=== PATIENT | female | born 1965 | race Caucasian/White ===

== ENCOUNTER → 2016-03-05 | Outpatient (CLI) | payer BC ==
--- NOTE | 2016-03-05 09:13 | BD ---
EXAMINATION TYPE: MG DEXA axial skeleton. DATE OF EXAM: 03/05/2016 8:51 AM CLINICAL HISTORY: Asymptomatic menopausal state, Z78.0 Height: 65in Weight: 120 FRAX RISK QUESTIONS: Alcohol (3 or more units per day): no Family History (Parent hip fracture): no Glucocorticoids (More than 3mos): no (Ex: prednisone, prednisolone, methylprednisolone, dexamethasone, and hydrocortisone). History of Fracture in Adulthood: yes Secondary Osteoporosis: 1. Type 1 Diabetes: no 2. Hyperthyroidism: no 3. Menopause before 45: yes, age 27, hysterectomy 4. Malnutrition: no 5. Chronic liver disease: no Rheumatoid Arthritis: no Current Tobacco Use: yes RISK FACTORS HISTORY OF: History of Fractures: yes When: lower leg 8-9 years ago; hand 7-8 years Other Fractures since Age 50: no Family History of Osteoporosis: yes, grandmother & aunt Drink Alcohol: occasionally, socially Active: yes Diet low in dairy products/other sources of calcium: no Take estrogen and/or progesterone medications: not now How long: about 5 years hormonal contraceptives Lost more than 2 inches in height since high school: no Frequent falls: no Poor Health: no Hyperparathyroidism: no Adrenal Insufficiency: no MEDICATIONS: Prednisone or other steroids: no Thyroid Medications: no Osteoporosis Medications: no EXAM MEASUREMENTS: Bone mineral densitometry was performed using the Snaptrip System. Bone mineral density as measured about the Lumbar spine is: ----- L1-L4(G/cm2): 1.022 T Score Values are as follows: ----- L2: -2.0 ----- L3: -1.0 ----- L4: -1.5 ----- L1-L4: -1.3 Bone mineral density not previously done at this facility Bone mineral density about the R hip (g/cm2): 0.764 Bone mineral density about the L hip (g/cm2): 0.753 T Score values are as follows: -----R Neck: -2.0 -----L Neck: -2.1 -----R Intertrochanter: -1.4 -----L Intertrochanter: -1.5 Bone mineral density not previously done at this facility IMPRESSION: Osteopenia (T Score between -2.5 and -1 as noted by T score values lumbar spine & Bilateral Hips There is slightly increased risk of fracture and the patient may be considered for treatment. Re-Screen 1-2 years. NOTE: T-SCORE=SD OF THE YOUNG ADULT MEAN.
--- NOTE | 2016-03-12 14:28 | MM ---
Reason for exam: screening (asymptomatic). Last mammogram was performed 5 years and 7 months ago. History: Patient is postmenopausal. Family history of premenopausal breast cancer in maternal aunt at age 30 and premenopausal breast cancer in maternal cousin at age 20. Took hormonal contraceptives for 5 years. Physical Findings: A clinical breast exam by your physician is recommended on an annual basis and results should be correlated with mammographic findings. MG 3D Screening Mammo W/Cad Bilateral CC and MLO view(s) were taken. Prior study comparison: August 16, 2013, mammogram, performed at [facility]. March 29, 2012, mammogram, performed at [facility]. August 09, 2010, CAD bilateral diagnostic mammogram. April 26, 2010, right diagnostic mammogram w/CAD. The breast tissue is extremely dense which could obscure a lesion on mammography. There is chronic nodularity in the right breast. There is no discrete abnormality. ASSESSMENT: Negative, BI-RAD 1 RECOMMENDATION: Routine screening mammogram of both breasts in 1 year.
== END | disposition home or self-care (01) ==
LOC: RADMAMWWP 08:10
PROVIDERS: ATTEND Family Medicine
DX: Z12.31 Encounter for screening mammogram for malignant neoplasm of breast (principal); M85.80 Other specified disorders of bone density and structure, unspecified site; Z78.0 Asymptomatic menopausal state
CPT/HCPCS: 77080; 77063; G0202

== ENCOUNTER → 2016-04-03 | Outpatient (CLI) | payer BC ==
--- NOTE | 2016-04-03 18:51 | CONS ---
DATE: 04/03/2016 CONSULTATION/NEW PATIENT EVALUATION HISTORY OF PRESENT ILLNESS/SLEEP-WAKE EVALUATION: A 50-year-old lady who has been evaluated in the sleep center for significant excessive daytime sleepiness, tiredness and awakenings from sleep with snoring. SLEEP SCHEDULE: Patient's usual sleep schedule from around 10:00 p.m. until 6:00 a.m. on working days and from 10:00 p.m. to 8:00 a.m. on weekends. FALLING ASLEEP: Sometimes she has problem with falling asleep. No TV in bedroom. DURING SLEEP: She usually sleeps on the back position. According to her , she snores. He never report that she has episodes of stopped breathing during the sleep. She is grinding her teeth, wakes up from sleep 2 times without nocturia. DURING THE DAY/WAKE STATE: In the morning, patient wakes up tired, feels sleepy during the day. [place] Sleepiness Scale significantly increased to 16. She may take naps on the weekend. She usually does not feel refreshed after nap. Her weight is about the same for the last years. No history of hypnagogic hallucinations, sleep paralysis or cataplexy. PAST MEDICAL HISTORY: Positive for ADHD, acid reflux, seasonal allergies. PAST SURGICAL HISTORY: Partial hysterectomy for adenomyosis, oophorectomy for a cyst at the end of 2014 and after that time basically patient started to feel more tired and sleepy during the day and her urinary bladder lift surgery at the same time as oophorectomy. MEDICATIONS: 1. Paxil. 2. Ranitidine. SOCIAL HISTORY: Positive for smoking less than 1 pack of cigarettes a day for about 30 years. Presently, patient trying to quit smoking, now using up to 1 cigarette a day. Alcohol consumption rarely. ALLERGIES TO MEDICATIONS: TETRACYCLINE. REVIEW OF SYSTEMS: Tiredness and sleepiness during the day. FAMILY HISTORY: Hyperlipidemia, cancer. PHYSICAL EXAMINATION: GENERAL: A lady without distress. VITAL SIGNS: BP 100/64, HR 83, RR 18. Height 65 inches. Weight 122.8. Body mass index 20.3. Neck 12-1/2 inches in circumference. Temp is 97.0. HEENT: PERRLA, EOMI. Evaluation of oropharynx showed tongue protrudes midline, retrognathia about 4 mm, short distance between soft palate and posterior pharyngeal wall. Moderately low position of soft palate, wide pillars. NECK: Supple. No JVD. Thyroid is not palpable. LUNGS: Clear to percussion and to auscultation. Good air exchange. No wheezing or rhonchi. HEART: S1, S2 regular. No murmurs, gallops or rubs. ABDOMEN: Soft and nontender. Bowel sounds are present. No organomegaly appreciated. EXTREMITIES: No clubbing or cyanosis. SOUVENIR AND NOVELTY MAKER: Awake, alert, and oriented x3. Cranial nerves 2 to 7 intact. There is no fasciculation or atrophy noted. No focal deficits observed. IMPRESSION: 1. Snoring, awakenings from sleep 2 times at night, small oropharyngeal air space, sleepiness. Sleepiness started more for last year after oophorectomy, retrognathia 4 mm. Possible obstructive sleep apnea-hypopnea syndrome. 2. Sleepiness. [place] Sleepiness Scale significantly increased to 16. Differential diagnoses include hypersomnia. 3. History of attention deficit hyperactivity disorder. 4. Acid reflux. 5. Status post partial hysterectomy. 6. Status post oophorectomy bilaterally for cyst 1 year ago. 7. Status post bladder lift procedure. 8. Seasonal allergies. PLAN: 1. Polysomnography for evaluation of patient's breathing during sleep. 2. CPAP/BiPAP titration if sleep study confirms obstructive sleep apnea-hypopnea syndrome. 3. Multiple sleep latency test if sleep study is negative for obstructive sleep apnea/hypopnea syndrome. 4. Preferable position during sleep on the side. 5. No driving if patient feels any sleepiness. Patient is aware of civil and criminal liability for unsafe driving. 6. I will see patient for follow-up visit to explain results of the testing and following plan. Thank you very much for this consultation. Sincerely, Oscar Jackson MD, PhD, FAASM. Diplomat of [place] [employer], Sleep Medicine Board by [place] [employer] [place] [employer] Tax Agent of [facility] [place]
== END | disposition home or self-care (01) ==
LOC: SLEEP 13:56
PROVIDERS: ATTEND Internal Medicine
DX: G47.33 Obstructive sleep apnea (adult) (pediatric) (principal); G47.10 Hypersomnia, unspecified; F90.9 Attention-deficit hyperactivity disorder, unspecified type; F17.200 Nicotine dependence, unspecified, uncomplicated; Z88.1 Allergy status to other antibiotic agents; Z91.09 Other allergy status, other than to drugs and biological substances; Z79.899 Other long term (current) drug therapy; Z98.890 Other specified postprocedural states
CPT/HCPCS: 99211

== ENCOUNTER 2016-07-30 10:08 | Emergency (ER) | payer BC ==
[2016-07-30] MEDS ORDERED: SODIUM CHLORIDE 0.9% 500 ML IV STA (10:42)
[2016-07-30] MEDS ORDERED: METOCLOPRAMIDE 5 MG/ML 2 ML VIAL IVP STA (10:42)
[2016-07-30] MEDS ORDERED: HYDROmorphone 1 MG/ML 1 ML SYRINGE IVP STA (10:42)
--- NOTE | 2016-07-30 10:42 | ED ---
General Adult HPI - General Chief complaint: Abdominal Pain Stated complaint: side pain Time Seen by Provider: 07/30/16 10:22 Source: patient, RN notes reviewed, old records reviewed Mode of arrival: ambulatory Limitations: no limitations - History of Present Illness Initial comments: Chief complaint and history of present illness; this is a 51-year-old female here with her . The patient reports approximately half hour prior to emergency room patient developed acute sharp pain to the right upper quadrant near the gallbladder area. No nausea no vomiting. Pain increases with sitting up pain increased with palpation over the area. Denying nausea vomiting. She had a bowel movement which did not change the pain. - Related Data Home Medications Medication Instructions Recorded Confirmed PARoxetine HCL [Paxil Cr] 12.5 mg PO QAM 08/02/14 07/30/16 Ranitidine HCl 150 mg PO DAILY 08/02/14 07/30/16 Cholecalciferol [Vitamin D3] 2,000 unit PO DAILY 02/19/16 07/30/16 Janak/D3/Mag11/Zinc/Box Lining Machine Feeder/Travis/Bor 1 tab PO DAILY 07/30/16 07/30/16 [Caltrate 600+D Plus Tablet] Allergies Allergy/AdvReac Type Severity Reaction Status Date / Time Tetracyclines AdvReac Dizzy Verified 07/30/16 10:47 Review of Systems ROS Statement: Those systems with pertinent positive or pertinent negative responses have been documented in the HPI. Review of systems no visual acuity changes no complaint of headache no neck pain no chest pain or shortness of breath. She has point specific right upper quadrant pain over the gallbladder area. No radiation of pain to the back. She states she's having menopausal sweats. Denies any change in stool color or urine color. Denies past history of kidney stones she does have a history of colitis and affected more than left side of the colon. Patient's never had any gallbladder issues. All systems are reviewed. Past medical problems significant for GERD, colitis. Surgeries total hysterectomy. Hemorrhoidectomy. No other surgeries. Family history includes multiple cancers including colon, uterus, bone and breast. The patient is getting frequent colonoscopies. The patient has ALLERGIES to tetracycline. She does smoke strongly encouraged to stop drink alcohol socially. ROS Other: All systems not noted in ROS Statement are negative. Past Medical History Past Medical History: GERD/Reflux Additional Past Medical History / Comment(s): COLITIS. Hx left ovarian cyst, diverticula History of Any Multi-Drug Resistant Organisms: None Reported Past Surgical History: Hysterectomy Additional Past Surgical History / Comment(s): hemrrhoidectomy, bunion surgery Past Anesthesia/Blood Transfusion Reactions: Motion Sickness Additional Past Anesthesia/Blood Transfusion Reaction / Comment(s): mild Past Psychological History: ADD/ADHD Smoking Status: Current some day smoker Past Alcohol Use History: Rare Past Drug Use History: None Reported General Exam - General Exam Comments Initial Comments: General: The patient is awake and alert, complaining of right upper quadrant pain ongoing approximately 30-40 minutes ago. Pain increases with palpation coughing and sitting up. Denies nausea. Vital signs show temperature 97.5 pulse 72 respiratory rate 20 pulse ox 97% room air blood pressure 128/59 Eye: Pupils are equal, round and reactive to light, extra-ocular movements are intact ; there is normal conjunctiva bilaterally. No signs of icterus. Ears, nose, mouth and throat: There are moist mucous membranes and no oral lesions. Neck: The neck is supple, there is no tenderness . Cardiovascular: There is a regular rate and rhythm. No murmur, rub or gallop is appreciated. Respiratory: Lungs are clear to auscultation, respirations are non-labored, breath sounds are equal. No wheezes, stridor, rales, or rhonchi. Gastrointestinal: Pain with palpation to the right upper quadrant. Voluntary guarding with palpation on the right side with a positive Cesar sign. No rebound. No referred pain. Active bowel sounds. Patient denies any change in color of the stool. No change in color urine per patient. Back: There is no tenderness to palpation in the midline. There is no obvious deformity. Musculoskeletal: Full range of motion upper and lower extremities. Patient feels slightly better with her right leg bent at the knee laying flat. Neurological: No evidence of her complaints of any neuro deficits. No focal or lateralizing findings noted. Skin: Skin is warm and dry and no rashes or lesions are noted. Limitations: no limitations Course Vital Signs 07/30/16 10:14 Temperature 97.5 F L Pulse Rate 72 Respiratory 20 Rate Blood Pressure 128/59 O2 Sat by Pulse 97 Oximetry Medical Decision Making - Medical Decision Making Medical decision-making. The patient is here for acute sharp right upper quadrant pain. Labs show white count 7.3 hemoglobin 13 hematocrit of 38 with a potassium 4.8. BUN 15 creatinine 0.6 with a GFR greater than 60. Glucose 82. Amylase lipase within normal limits. X-ray of the abdomen shows abdominal gas pattern is normal. No evidence of obstruction or free air. No unusual calcifications are seen. Conclusion no acute intra-abdominal abnormality. As read by Dr. Willard On x-ray does appear to be large amount of gas in the right upper quadrant. On reexamination the patient had no pain. It appears the patient may have had dilatation of the intestine in that area causing a sharp pain has since subsided. The patient was advised to continue a stool softener at home. Increase fluid intake. Consider prune juice etc. for natural relief for other medications that are affected. Advised follow-up with family physician return emergency room as needed. - Lab Data Result diagrams: 07/30/16 11:02 07/30/16 11:02 Lab Results 07/30/16 07/30/16 07/30/16 Range/Units 10:51 11:02 11:02 WBC 7.3 (3.8-10.6) k/uL RBC 4.25 (3.80-5.40) m/uL Hgb 13.3 (11.4-16.0) gm/dL Hct 38.4 (34.0-46.0) % MCV 90.3 (80.0-100.0) fL MCH 31.4 (25.0-35.0) pg MCHC 34.8 (31.0-37.0) g/dL RDW 12.5 (11.5-15.5) % Plt Count 241 (150-450) k/uL Neutrophils % 58 % Lymphocytes % 31 % Monocytes % 6 % Eosinophils % 2 % Basophils % 0 % Neutrophils # 4.3 (1.3-7.7) k/uL Lymphocytes # 2.2 (1.0-4.8) k/uL Monocytes # 0.4 (0-1.0) k/uL Eosinophils # 0.1 (0-0.7) k/uL Basophils # 0.0 (0-0.2) k/uL Sodium 141 (137-145) mmol/L Potassium 4.8 (3.5-5.1) mmol/L Chloride 103 (98-107) mmol/L Carbon Dioxide 28 (22-30) mmol/L Anion Gap 10 mmol/L BUN 15 (7-17) mg/dL Creatinine 0.63 (0.52-1.04) mg/dL Est GFR (MDRD) Af Amer >60 (>60 ml/min/1.73 sqM) Est GFR (MDRD) Non-Af >60 (>60 ml/min/1.73 sqM) Glucose 82 (74-99) mg/dL Calcium 10.2 (8.4-10.2) mg/dL Total Bilirubin 0.5 (0.2-1.3) mg/dL AST 22 (14-36) U/L ALT 25 (9-52) U/L Alkaline Phosphatase 85 (38-126) U/L Total Protein 7.6 (6.3-8.2) g/dL Albumin 4.6 (3.5-5.0) g/dL Amylase 78 (30-110) U/L Lipase 94 (23-300) U/L Urine Color Light Yellow Urine Appearance Clear (Clear) Urine pH 5.5 (5.0-8.0) Ur Specific [place] 1.009 (1.001-1.035) Urine Protein Negative (Negative) Urine Glucose (UA) Negative (Negative) Urine Ketones Negative (Negative) Urine Blood Small H (Negative) Urine Nitrite Negative (Negative) Urine Bilirubin Negative (Negative) Urine Urobilinogen <2.0 (<2.0) mg/dL Ur Leukocyte Esterase Negative (Negative) Urine RBC 1 (0-5) /hpf Ur Squamous Epith Cells 1 (0-4) /hpf Urine Bacteria Rare H (None) /hpf Urine Mucus Rare H (None) /hpf Disposition Clinical Impression: Abdominal cramping in right upper quadrant Disposition: HOME SELF-CARE Condition: Good Instructions: Abdominal Pain (ED), Constipation (ED), High Fiber Diet (ED), Fleet Enema (ED) Additional Instructions: Increase fluids. Use natural laxatives. Follow-up family physician return emergency room as needed Referrals: Anival Ponce MD [Primary Care Provider] - 1-2 days Time of Disposition: 12:30
--- NOTE | 2016-07-30 11:29 | XR ---
EXAMINATION TYPE: XR abdomen 2V DATE OF EXAM ORDERED: 07/30/2016 HISTORY: abdominal pain. COMPARISON: Previous study dated 10/06/2014. FINDINGS: The abdominal gas pattern is normal. There is no evidence of obstruction or free air. No u nusual calcifications are seen. IMPRESSION: NO ACUTE INTRA-ABDOMINAL ABNORMALITY.
[2016-07-30 11:33] LABS: Basophils % (A) 0 %; CH 31.4; CHCM 34.8; Eosinophils # (A) 0.1 k/uL (0-0.7); Eosinophils % (A) 2 %; HCT 38.4 % (34.0-46.0); HGB 13.3 gm/dL (11.4-16.0); Luc # (Auto) 0.25; Luc % (Auto) 3; Lymphocytes # (A) 2.2 k/uL (1.0-4.8); Lymphocytes % (A) 31 %; MCH 31.4 pg (25.0-35.0); MCHC 34.8 g/dL (31.0-37.0); MCV 90.3 fL (80.0-100.0); Mean Platelet Volume 7.8; Monocytes # (A) 0.4 k/uL (0-1.0); Monocytes % (A) 6 %; Neutrophils # (A) 4.3 k/uL (1.3-7.7); Neutrophils % (A) 58 %; RBC 4.25 m/uL (3.80-5.40); RDW 12.5 % (11.5-15.5); WBC 7.3 k/uL (3.8-10.6); WBC (Perox) 7.77
[2016-07-30 11:43] LABS: ALT 25 U/L (9-52); AST 22 U/L (14-36); Alkaline Phosphatase 85 U/L (38-126); Amylase 78 U/L (30-110); Anion Gap 10 mmol/L; Blood Urea Nitrogen 15 mg/dL (7-17); Calcium 10.2 mg/dL (8.4-10.2); Carbon Dioxide 28 mmol/L (22-30); Chloride 103 mmol/L (98-107); Glucose 82 mg/dL (74-99); Non-African American GFR(MDRD) >60 (>60 ml/min/1.73 sqM); Potassium 4.8 mmol/L (3.5-5.1); Sodium 141 mmol/L (137-145); Total Bilirubin 0.5 mg/dL (0.2-1.3); Total Protein 7.6 g/dL (6.3-8.2)
[2016-07-30 11:50] LABS: Appearance,Urine Clear (Clear); Bacteria,Urine Rare /hpf; Bilirubin,Urine Negative (Negative); Glucose,Urine (UA) Negative (Negative); Ketones,Urine Negative (Negative); Leukocyte Esterase,Urine Negative (Negative); Mucus,Urine Rare /hpf; Nitrite,Urine Negative (Negative); PH, Urine 5.5 (5.0-8.0); Particle Count 2094; Protein,Urine Negative (Negative); RBC,Urine 1 /hpf (0-5); Specific Gravity,Urine 1.009 (1.001-1.035); Squamous Epithelial Cell,Urine 1 /hpf (0-4); UA Billing (MACRO vs. MICRO) MICRO; Urobilinogen,Urine <2.0 mg/dL (<2.0)
[2016-07-30] MEDS ORDERED: DOCUSATE 283 MG/5 ML ENEMA RECTAL STA (12:20)
[2016-07-30 12:39] VITALS: BP 111/51; PULSE 73; RESP 18; TEMP 97.9
== END 2016-07-30 12:39 | disposition home or self-care (01) ==
LOC: EC 10:08
DX: R10.11 Right upper quadrant pain (principal); K21.9 Gastro-esophageal reflux disease without esophagitis; F17.200 Nicotine dependence, unspecified, uncomplicated; Z53.20 Procedure and treatment not carried out because of patient's decision for unspecified reasons; Z79.899 Other long term (current) drug therapy; Z88.1 Allergy status to other antibiotic agents; Z87.19 Personal history of other diseases of the digestive system
CPT/HCPCS: 36415; 74020; 80053; 81001; 82150; 83690; 85025; 87086; 96360; 99284

== ENCOUNTER → 2016-08-07 | Outpatient (CLI) | payer BC ==
--- NOTE | 2016-08-07 23:25 | PN ---
DATE OF SERVICE: 08/07/2016 This patient is a 51-year-old lady who has been followed in the sleep center for treatment of obstructive sleep apnea-hypopnea syndrome. Recently she had a diagnostic sleep study and CPAP titration. Diagnostic sleep study showed severe sleep apnea; apnea-hypopnea index 37.3 with oxygen desaturation to 87%. During titration, the highest pressure was 17 cm of water. At that pressure the patient developed some central apneas. Because I thought that the titration done was at too high a pressure than was necessary, I started the patient on AutoPAP with a pressure of 5 to 15 cm of water. Patient developed a collection of air in her ascending colon with pain in this area and went to the emergency room. Pain and discomfort were resolved there with an enema. After leaving the emergency room, by my recommendation patient stopped using her CPAP unit. Today she came for follow-up visit. I checked her CPAP unit. It shows usage of equipment for 23 out of 30 nights with average usage 6.7 hours, average pressure 11.3 cm of water. Leak is up to 5 L/minute, which is normal. Apnea-hypopnea index 4.2. MEDICATIONS: 1. Paxil. 2. Ranitidine. 3. Vitamin D. During physical exam, patient in no distress. VITAL SIGNS: BP 113/50, HR 79, RR 12. Weight 130.2. Temperature 98.3. Oxygen saturation at room air 91%. [place] Sleepiness Scale is 2. HEENT: PERRLA, EOMI. Evaluation of oropharynx showed tongue protrudes midline; low position of soft palate. NECK: Supple. No JVD. Thyroid is not palpable. LUNGS: Clear to percussion and to auscultation. Good air exchange. No wheezing or rhonchi. HEART: S1, S2 regular. No murmurs, gallops or rubs. ABDOMEN: Soft and nontender. Bowel sounds are present. No organomegaly appreciated. EXTREMITIES: No clubbing or cyanosis. STORAGE ADMINISTRATOR: Awake, alert, and oriented x3. Cranial nerves 2 to 7 intact. There is no fasciculation or atrophy noted. No focal deficits observed. IMPRESSION: 1. Severe obstructive sleep apnea-hypopnea syndrome. Apnea-hypopnea index 37.3 by results of home sleep apnea test. It could be higher if the test was done in the sleep center. 2. Patient developed collection of air in the ascending colon after she was started on treatment with CPAP. 3. History of attention deficit hyperactivity disorder. 4. Acid reflux. 5. Status post partial hysterectomy. 6. Status post bilateral oophorectomy. 7. Status post bladder ( ) procedure. 8. Seasonal allergies. PLAN: 1. I changed the pressure in her CPAP unit down to the range of 5 to 8 cm of water. 2. Patient will start to use her CPAP treatment again. She feels much better while she is using her CPAP with relationship to her sleep and feeling during the day. 3. No driving if feeling any sleepiness. 4. Follow-up visit in 2 weeks. 5. Stop using CPAP if any discomfort in the belly. Thank you very much for allowing me to participate in the management of your patient. Sincerely, Oscar Jackson MD, PhD, FAASM. Diplomat of [place] [employer], Sleep Medicine Board by [place] [employer], [place] [employer]
== END ==
LOC: SLEEP 17:05
PROVIDERS: ATTEND Internal Medicine
DX: G47.33 Obstructive sleep apnea (adult) (pediatric) (principal); K21.9 Gastro-esophageal reflux disease without esophagitis; J30.2 Other seasonal allergic rhinitis; Z90.710 Acquired absence of both cervix and uterus; Z90.722 Acquired absence of ovaries, bilateral; Z98.890 Other specified postprocedural states

== ENCOUNTER → 2016-08-21 | Outpatient (CLI) | payer BC ==
--- NOTE | 2016-08-28 17:21 | PN ---
DATE OF SERVICE: 08/21/2016 This patient is a 51-year-old lady who has been followed in the sleep center for treatment of obstructive sleep apnea/hypopnea syndrome. During her previous visit on 08/07/16, because of collection of air in her colon, I decreased the pressure down to 6 cm of water. At present, she has no problem with her stomach. She is able to use her equipment during the night. Her mask was switched from the nasal pillow Dunn FX to P10, but she has some problems with irritation from nasal pillows. I checked her CPAP unit. CPAP pressure is 6 cm of water. Apnea/hypopnea index reading is 3.5. Usage 23 out of 30 nights for more than 4 hours. [place] Sleepiness Scale is only 2. MEDICATIONS: 1. Paxil. 2. Ranitidine. 3. Vitamin D. PHYSICAL EXAM: The patient is in no distress. VITAL SIGNS: Blood pressure 106/70, heart rate 76, respiratory rate 16, weight 131, temperature 98.1, oxygen saturation on room air 98%. GENERAL: A pleasant patient without distress. HEENT: PERRLA. EOMI. Evaluation of oropharynx showed tongue protrudes midline. Low position of soft palate. NECK: Supple. No JVD. Thyroid is not palpable. LUNGS: Clear to percussion and to auscultation. Good air exchange. No wheezing or rhonchi. HEART: S1, S2 regular. No murmurs, gallops or rubs. ABDOMEN: Soft and non-tender. Bowel sounds are present. No organomegaly appreciated. EXTREMITIES: No clubbing or cyanosis. CULINARY DIRECTOR: Awake, alert and oriented x3. Cranial nerves 2 through 7 are intact. There is no fasciculation or atrophy noted. No focal deficits observed. IMPRESSION: 1. Severe obstructive sleep apnea/hypopnea syndrome. Apnea/hypopnea index 37.3, controlled with CPAP at 6 cm of water. No present problem with any collection of air in the stomach or colon. 2. History of attention deficit hyperactivity disorder. 3. Acid reflux. 4. Status post partial hysterectomy. 5. Status post bilateral oophorectomy. 6. Seasonal allergies. 7. Status bladder lifting procedure. PLAN: 1. We will change nasal pillows to nasal mask, [place] FX standard. 2. Continue usage of CPAP therapy every night for the whole night. 3. No driving if feeling any sleepiness. 4. Sleep hygiene with regular time in bed for at least 8 hours. Sincerely, Oscar Jackson. , PhD, FAASM. Diplomat of [place] [employer], Sleep Medicine Board by [place] [employer] [place] [employer] Cigarette Filter Inspector of [facility] [place] [facility]ENTERMauyri
== END | disposition home or self-care (01) ==
LOC: SLEEP 10:22
PROVIDERS: ATTEND Internal Medicine
DX: G47.33 Obstructive sleep apnea (adult) (pediatric) (principal); K21.9 Gastro-esophageal reflux disease without esophagitis; J30.2 Other seasonal allergic rhinitis; Z90.710 Acquired absence of both cervix and uterus; Z90.722 Acquired absence of ovaries, bilateral; Z98.890 Other specified postprocedural states

== ENCOUNTER 2016-10-10 14:45 | Inpatient (IN) | payer BC ==
[2016-10-10] MEDS ORDERED: HYDROmorphone 1 MG/ML 1 ML SYRINGE IVP STA ×2 (16:30→20:46)
[2016-10-10] MEDS ORDERED: SODIUM CHLORIDE 0.9% 1,000 ML IV STA ×2 (16:30)
[2016-10-10] MEDS ORDERED: ONDANSETRON 4 MG/2 ML VIAL IVP STA ×2 (16:30→21:33)
--- NOTE | 2016-10-10 16:30 | ED ---
General Adult HPI - General Chief complaint: GI Bleed Stated complaint: Blood in stool Time Seen by Provider: 10/10/16 15:57 Source: patient, family, RN notes reviewed, old records reviewed Mode of arrival: ambulatory Limitations: no limitations - History of Present Illness Initial comments: Complaint history of present illness; this is a 51-year-old female here with her significant other. She reports that 1 AM she starting having diarrhea which became very bloody. To straight hours she had painful cramps. Managed to sleep several hours and again it happened several times at 711 1 PM. She went to her family physician stool guaiac was positive for blood. The patient' s discomfort mainly in the left lower quadrant. She does state that at one time she had been diagnosed diverticulitis but on subsequent colonoscopies she was told she did not have diverticulosis. - Related Data Home Medications Medication Instructions Recorded Confirmed PARoxetine HCL [Paxil Cr] 12.5 mg PO QAM 08/02/14 10/10/16 Ranitidine HCl 150 mg PO DAILY 08/02/14 10/10/16 Janak/D3/Mag11/Zinc/Payment Poster/Travis/Bor 1 tab PO DAILY 07/30/16 10/10/16 [Caltrate 600+D Plus Tablet] Allergies Allergy/AdvReac Type Severity Reaction Status Date / Time Tetracyclines AdvReac Dizzy Verified 10/10/16 16:05 Review of Systems ROS Statement: Those systems with pertinent positive or pertinent negative responses have been documented in the HPI. Review of systems. No headache or visual acuity changes no nausea no vomiting no chest pain or shortness of breath discomfort mainly to the left lower quadrant. Decreased appetite. No back pain. No neuro deficits. All systems are reviewed. Past medical problems significant for GERD, but no symptoms such as stomach upset lately. Possible diagnosis of diverticulitis made at one time prior to this. Surgeries hysterectomy and hemorrhoidectomy. The patient's family history significant for cancers and include colon, breast, ovarian and blood cancers. Patient does smoke strongly encouraged to stop drink alcohol rarely socially. Patient has ALLERGIES to tetracyclines. ROS Other: All systems not noted in ROS Statement are negative. Past Medical History Past Medical History: GERD/Reflux Additional Past Medical History / Comment(s): COLITIS. Hx left ovarian cyst, diverticula History of Any Multi-Drug Resistant Organisms: None Reported Past Surgical History: Hysterectomy Additional Past Surgical History / Comment(s): hemrrhoidectomy, bunion surgery Past Anesthesia/Blood Transfusion Reactions: Motion Sickness Additional Past Anesthesia/Blood Transfusion Reaction / Comment(s): mild Past Psychological History: ADD/ADHD Smoking Status: Current some day smoker Past Alcohol Use History: Rare Past Drug Use History: None Reported General Exam - General Exam Comments Initial Comments: General: The patient is awake and alert, complaining of significant amount of bloody stool. Cramping abdomen The left lower quadrant. Vital signs temperature 90.0 pulse 92 respiratory rate 20 pulse ox on percent room air blood pressure 113/73 Eye: Pupils are equal, round and reactive to light, extra-ocular movements are intact ; there is normal conjunctiva bilaterally. No signs of icterus. Ears, nose, mouth and throat: There are moist mucous membranes and no oral lesions. Neck: The neck is supple, there is no tenderness, no anterior cervical lymphadenopathy , thyroid not enlarged. Cardiovascular: There is a regular rate and rhythm. No murmur, rub or gallop is appreciated. Respiratory: Lungs are clear to auscultation, respirations are non-labored, breath sounds are equal. No wheezes, stridor, rales, or rhonchi. Gastrointestinal: Soft, non-distended, mildly tender with deep palpation left lower quadrant minimal guarding voluntarily. No rebound or referred pain. No CVA tenderness. Bowel sounds are unremarkable.to examination internal hemorrhoids noted without bleeding no fissures. no masses palpable. Examining finger mindy blood on the fingertip. Guaiac positive per lab. Examination was done with the help of CHRISSY Marie Back: No back pain Musculoskeletal: Normal ROM, no tenderness, There is no pedal edema. There is no calf tenderness or swelling. Sensation intact. Neurological: No complaint of any numbness tingling difficulty walking or any neuro deficits. Skin is warm and dry and no rashes or lesions are noted. Limitations: no limitations Course Vital Signs 10/10/16 10/10/16 10/10/16 14:51 16:00 18:45 Temperature 98.0 F 98.4 F Pulse Rate 92 82 84 Respiratory 20 16 18 Rate Blood Pressure 113/73 135/58 110/69 O2 Sat by Pulse 100 100 97 Oximetry 10/10/16 21:27 Temperature 98.0 F Pulse Rate 76 Respiratory 16 Rate Blood Pressure 123/58 O2 Sat by Pulse 96 Oximetry Medical Decision Making - Medical Decision Making Medical decision making patient's white count 16 hemoglobin 13.6 hematocrit 40.8. INR 1.0, potassium 4.3 to BUN 14 creatinine 0.6 with a GFR greater than 60. Glucose 84. The patient's occult blood was positive. And frankly red on examination. CT of the abdomen and pelvis was done with IV and oral contrast and the radiologist's impression includes significant wall thickening of the descending and sigmoid colon. Small bowel wall thickening is also noted in the left upper quadrant and midabdomen. No small bowel dilatation. Appendix no findings to suggest acute appendicitis. Final impression colitis involving the descending and sigmoid colon. Normal appendix. No associated abscess. #2 small bowel enteritis without evidence of small bowel obstruction. As read by Dr. lewis Case discussed with Valerie skinner nurse practitioner on-call for Dr. Rdz. Patient be admitted continued on antibiotics. - Lab Data Result diagrams: 10/10/16 16:53 10/10/16 16:53 Lab Results 10/10/16 10/10/16 10/10/16 Range/Units 16:40 16:53 16:53 WBC 16.0 H (3.8-10.6) k/uL RBC 4.32 (3.80-5.40) m/uL Hgb 13.6 (11.4-16.0) gm/dL Hct 40.8 (34.0-46.0) % MCV 94.4 (80.0-100.0) fL MCH 31.6 (25.0-35.0) pg MCHC 33.5 (31.0-37.0) g/dL RDW 13.2 (11.5-15.5) % Plt Count 302 (150-450) k/uL Neutrophils % 78 % Lymphocytes % 14 % Monocytes % 5 % Eosinophils % 1 % Basophils % 1 % Neutrophils # 12.5 H (1.3-7.7) k/uL Lymphocytes # 2.3 (1.0-4.8) k/uL Monocytes # 0.7 (0-1.0) k/uL Eosinophils # 0.2 (0-0.7) k/uL Basophils # 0.1 (0-0.2) k/uL PT (9.0-12.0) sec INR (<1.2) Sodium 140 (137-145) mmol/L Potassium 4.3 (3.5-5.1) mmol/L Chloride 104 (98-107) mmol/L Carbon Dioxide 23 (22-30) mmol/L Anion Gap 13 mmol/L BUN 14 (7-17) mg/dL Creatinine 0.60 (0.52-1.04) mg/dL Est GFR (MDRD) Af Amer >60 (>60 ml/min/1.73 sqM) Est GFR (MDRD) Non-Af >60 (>60 ml/min/1.73 sqM) Glucose 84 (74-99) mg/dL Plasma Lactic Acid Hardeep (0.7-2.0) mmol/L Calcium 9.7 (8.4-10.2) mg/dL Total Bilirubin 0.2 (0.2-1.3) mg/dL AST 19 (14-36) U/L ALT 28 (9-52) U/L Alkaline Phosphatase 102 (38-126) U/L Total Protein 6.9 (6.3-8.2) g/dL Albumin 4.4 (3.5-5.0) g/dL Lipase 71 (23-300) U/L Stool Occult Blood Positive H (Negative) 10/10/16 10/10/16 Range/Units 16:53 16:53 WBC (3.8-10.6) k/uL RBC (3.80-5.40) m/uL Hgb (11.4-16.0) gm/dL Hct (34.0-46.0) % MCV (80.0-100.0) fL MCH (25.0-35.0) pg MCHC (31.0-37.0) g/dL RDW (11.5-15.5) % Plt Count (150-450) k/uL Neutrophils % % Lymphocytes % % Monocytes % % Eosinophils % % Basophils % % Neutrophils # (1.3-7.7) k/uL Lymphocytes # (1.0-4.8) k/uL Monocytes # (0-1.0) k/uL Eosinophils # (0-0.7) k/uL Basophils # (0-0.2) k/uL PT 10.0 (9.0-12.0) sec INR 1.0 (<1.2) Sodium (137-145) mmol/L Potassium (3.5-5.1) mmol/L Chloride (98-107) mmol/L Carbon Dioxide (22-30) mmol/L Anion Gap mmol/L BUN (7-17) mg/dL Creatinine (0.52-1.04) mg/dL Est GFR (MDRD) Af Amer (>60 ml/min/1.73 sqM) Est GFR (MDRD) Non-Af (>60 ml/min/1.73 sqM) Glucose (74-99) mg/dL Plasma Lactic Acid Hardeep 1.0 (0.7-2.0) mmol/L Calcium (8.4-10.2) mg/dL Total Bilirubin (0.2-1.3) mg/dL AST (14-36) U/L ALT (9-52) U/L Alkaline Phosphatase (38-126) U/L Total Protein (6.3-8.2) g/dL Albumin (3.5-5.0) g/dL Lipase (23-300) U/L Stool Occult Blood (Negative) Disposition Clinical Impression: Colitis Disposition: ADMITTED IP TO THIS [facility] Condition: Fair Referrals: Anival Ponce MD [Primary Care Provider] - 1-2 days
[2016-10-10 17:05] LABS: Basophils # (A) 0.1 k/uL (0-0.2); Basophils % (A) 1 %; CH 32.3; CHCM 34.4; Eosinophils # (A) 0.2 k/uL (0-0.7); Eosinophils % (A) 1 %; HCT 40.8 % (34.0-46.0); HDW 2.17; HGB 13.6 gm/dL (11.4-16.0); Luc # (Auto) 0.16; Luc % (Auto) 1; Lymphocytes # (A) 2.3 k/uL (1.0-4.8); Lymphocytes % (A) 14 %; MCH 31.6 pg (25.0-35.0); MCHC 33.5 g/dL (31.0-37.0); MCV 94.4 fL (80.0-100.0); Mean Platelet Volume 8.7; Monocytes # (A) 0.7 k/uL (0-1.0); Monocytes % (A) 5 %; Neutrophils # (A) 12.5 k/uL (1.3-7.7); Neutrophils % (A) 78 %; RBC 4.32 m/uL (3.80-5.40); RDW 13.2 % (11.5-15.5); WBC (Perox) 15.93
[2016-10-10 17:19] LABS: ALT 28 U/L (9-52); AST 19 U/L (14-36); Alkaline Phosphatase 102 U/L (38-126); Anion Gap 13 mmol/L; Blood Urea Nitrogen 14 mg/dL (7-17); Calcium 9.7 mg/dL (8.4-10.2); Carbon Dioxide 23 mmol/L (22-30); Chloride 104 mmol/L (98-107); Glucose 84 mg/dL (74-99); Non-African American GFR(MDRD) >60 (>60 ml/min/1.73 sqM); Potassium 4.3 mmol/L (3.5-5.1); Sodium 140 mmol/L (137-145); Total Bilirubin 0.2 mg/dL (0.2-1.3); Total Protein 6.9 g/dL (6.3-8.2)
[2016-10-10] MEDS ORDERED: IOHEXOL 350 MG/ML 25 ML BOTTLE (ORAL USE) PO PRN (18:22)
[2016-10-10] MEDS ORDERED: RX INFO: IV CONTRAST WAS GIVEN 1 EACH MISC MISCELLANE PRN (18:22)
[2016-10-10] MEDS ORDERED: LEVOFLOXACIN 500MG-D5W PMX 500 MG in DEXTROSE/WATER 1 100ML.BAG IVPB STA (19:50)
[2016-10-10] MEDS ORDERED: metroNIDAZOLE-NS PMX 500 MG in SALINE 1 100ML.BAG IVPB STA (19:51)
--- NOTE | 2016-10-10 22:30 | CT ---
EXAM: CT Abdomen and Pelvis With Intravenous Contrast CLINICAL HISTORY: Reason: Left lower quadrant pain, blood per rectum TECHNIQUE: Axial computed tomography images of the abdomen and pelvis with intravenous contrast. DLP is 539.1 mGy-cm. 100 mL of Isovue-300 was administered intravenously for this exam. This CT exam was performed using one or more of the following dose reduction techniques: automated exposure control, adjustment of the mA and/or kV according to patient size, and/or use of iterative reconstruction technique. COMPARISON: 08/08/14 FINDINGS: Lower thorax: No acute findings. ABDOMEN: Liver: Unremarkable. No mass. Gallbladder and bile ducts: Unremarkable. No calcified stones. No ductal dilation. Pancreas: Unremarkable. No mass. No ductal dilation. Spleen: Unremarkable. No splenomegaly. Adrenals: Unremarkable. No mass. Kidneys and ureters: Unremarkable. No solid mass. No hydronephrosis. Stomach and bowel: Significant wall thickening of the descending and sigmoid colon. Small bowel wall thickening is also noted in the left upper quadrant and mid abdomen. No small bowel dilatation. Appendix: No findings to suggest acute appendicitis. PELVIS: Bladder: Unremarkable. No mass. Reproductive: Unremarkable as visualized. ABDOMEN and PELVIS: Intraperitoneal space: Unremarkable. No free air. No significant fluid collection. Bones/joints: No acute fracture. No dislocation. Soft tissues: Unremarkable. Vasculature: Unremarkable. No abdominal aortic aneurysm. Lymph nodes: Unremarkable. No enlarged lymph nodes. IMPRESSION: 1. Colitis involving the descending and sigmoid colon. Normal appendix. No associated abscess. 2. Small bowel enteritis without evidence of small bowel obstruction.
[2016-10-10] MEDS ORDERED: NALOXONE 0.4 MG/ML 1 ML VIAL IV PRN (23:13)
[2016-10-10] MEDS: SODIUM CHLORIDE 0.9% 1,000 ML IV SCH (23:59)
[2016-10-11] MEDS: HYDROmorphone 1 MG/ML 1 ML SYRINGE IV PRN ×3 (00:16→08:04)
[2016-10-11] MEDS: metroNIDAZOLE-NS PMX 500 MG in SALINE 1 100ML.BAG IVPB SCH ×3 (04:34→17:22)
[2016-10-11] MEDS: SODIUM CHLORIDE 0.9% 1,000 ML IV SCH ×3 (06:28→17:26)
[2016-10-11 08:24] LABS: Basophils % (A) 0 %; CH 30.8; CHCM 32.6; Eosinophils # (A) 0.2 k/uL (0-0.7); Eosinophils % (A) 2 %; HCT 33.9 % (34.0-46.0); HGB 11.3 gm/dL (11.4-16.0); Luc # (Auto) 0.17; Luc % (Auto) 1; Lymphocytes # (A) 2.3 k/uL (1.0-4.8); Lymphocytes % (A) 16 %; MCH 31.7 pg (25.0-35.0); MCHC 33.3 g/dL (31.0-37.0); Mean Platelet Volume 8.2; Monocytes # (A) 0.8 k/uL (0-1.0); Monocytes % (A) 6 %; Neutrophils # (A) 10.6 k/uL (1.3-7.7); Neutrophils % (A) 75 %; RBC 3.57 m/uL (3.80-5.40); RDW 12.3 % (11.5-15.5); WBC 14.1 k/uL (3.8-10.6); WBC (Perox) 14.86
[2016-10-11 08:46] LABS: ALT 33 U/L (9-52); AST 18 U/L (14-36); Alkaline Phosphatase 78 U/L (38-126); Anion Gap 6 mmol/L; Blood Urea Nitrogen 8 mg/dL (7-17); Calcium 8.7 mg/dL (8.4-10.2); Carbon Dioxide 27 mmol/L (22-30); Chloride 106 mmol/L (98-107); Glucose 83 mg/dL (74-99); Non-African American GFR(MDRD) >60 (>60 ml/min/1.73 sqM); Potassium 4.3 mmol/L (3.5-5.1); Sodium 139 mmol/L (137-145); Total Bilirubin 0.3 mg/dL (0.2-1.3); Total Protein 5.4 g/dL (6.3-8.2)
[2016-10-11] MEDS: PANTOPRAZOLE 40 MG/10 ML VIAL IV SCH (09:45)
[2016-10-11] MEDS: ONDANSETRON 4 MG/2 ML VIAL IVP PRN (09:54)
[2016-10-11] MEDS ORDERED: MORPHINE SULFATE 2 MG/ML SYRINGE IVP PRN (14:58)
[2016-10-11] MEDS ORDERED: SODIUM CHLORIDE 0.9% 1,000 ML IV ONE (14:58)
--- NOTE | 2016-10-11 15:42 | P.HPIM ---
History of Present Illness H&P Date: 10/11/16 Chief Complaint: Severe abdominal pain Is a 51-year-old female with history of depression comes in to the hospital with the sudden onset abdominal pain in the middle of the night. Patient was in good health prior to that. Patient initially attributed it to food poisoning Patient thereafter noted does significant amount of blood in her stools pain improved significantly over the last few hours. Patient was admitted to the hospital computed tomography scan of abdomen shows diffuse inflammation of the colon Patient's blood pressures were slightly lower. On questioning patient states that her blood pressures are always on the lower side state to have intermittent episodes of dizziness states that any change in position patient has to be careful and takes more time to adjust to change in position Today patient blood pressure systolic was less than 90 millimeters mercury EKG did not reveal any ST-T wave changes. Patient has not had a bowel movement since then. Last colonoscopy was 3 [address] garces Review of Systems All systems: negative (Noted in HPI) Past Medical History Past Medical History: GERD/Reflux Additional Past Medical History / Comment(s): COLITIS. Hx left ovarian cyst, diverticula History of Any Multi-Drug Resistant Organisms: None Reported Past Surgical History: Hysterectomy Additional Past Surgical History / Comment(s): hemrrhoidectomy, bunion surgery Past Anesthesia/Blood Transfusion Reactions: Motion Sickness Additional Past Anesthesia/Blood Transfusion Reaction / Comment(s): mild Past Psychological History: ADD/ADHD Smoking Status: Current some day smoker Past Alcohol Use History: Rare Past Drug Use History: None Reported - Past Family History Mother Additional Family Medical History / Comment(s): colon cancer ovarian and breast Father Additional Family Medical History / Comment(s): lukemia Medications and Allergies Home Medications Medication Instructions Recorded Confirmed Type PARoxetine HCL [Paxil Cr] 12.5 mg PO QAM 08/02/14 10/10/16 History Ranitidine HCl 150 mg PO DAILY 08/02/14 10/10/16 History Janak/D3/Mag11/Zinc/Funeral Home Director/Travis/Bor 1 tab PO DAILY 07/30/16 10/10/16 History [Caltrate 600+D Plus Tablet] Allergies Allergy/AdvReac Type Severity Reaction Status Date / Time Tetracyclines AdvReac Dizzy Verified 10/10/16 16:05 Physical Exam Vitals: Vital Signs Temp Pulse Pulse Resp BP BP Pulse Ox 10/11/16 15:00 99.5 F 79 20 96/55 99 10/11/16 09:47 66 87/38 10/11/16 07:00 97.0 F L 74 16 93/50 98 10/11/16 00:32 97.2 F L 71 18 108/52 98 10/10/16 23:41 98.6 F 70 16 110/51 97 10/10/16 21:27 98.0 F 76 16 123/58 96 10/10/16 18:45 84 18 110/69 97 10/10/16 16:00 98.4 F 82 16 135/58 100 Intake and Output 10/11/16 10/11/16 10/11/16 06:59 14:59 22:59 Other: # Voids 1 2 # Bowel Movements 1 Physical exam Gen. appearance oriented 3 in no distress Neck is supple no JVD Lungs good air entry clear to auscultation no rhonchi or wheezing Heart S1-S2 heard regular rate and rhythm no murmurs appreciated Abdomen is soft nontender no organomegaly bowel sounds are intact Neurologically cranial nerves II-12 grossly intact no focal motor or sensory deficits noted Skin no abnormalities appreciated Results CBC & Chem 7: 10/11/16 07:54 10/11/16 07:54 Labs: Abnormal Lab Results - Last 24 Hours (Table) 10/10/16 10/10/16 10/11/16 Range/Units 16:40 16:53 07:54 WBC 16.0 H 14.1 H (3.8-10.6) k/uL RBC 3.57 L (3.80-5.40) m/uL Hgb 11.3 L (11.4-16.0) gm/dL Hct 33.9 L (34.0-46.0) % Neutrophils # 12.5 H 10.6 H (1.3-7.7) k/uL Total Protein (6.3-8.2) g/dL Albumin (3.5-5.0) g/dL Stool Occult Blood Positive H (Negative) 10/11/16 Range/Units 07:54 WBC (3.8-10.6) k/uL RBC (3.80-5.40) m/uL Hgb (11.4-16.0) gm/dL Hct (34.0-46.0) % Neutrophils # (1.3-7.7) k/uL Total Protein 5.4 L (6.3-8.2) g/dL Albumin 3.2 L (3.5-5.0) g/dL Stool Occult Blood (Negative) Assessment and Plan Plan: #1 abdominal pain likely secondary to ischemic colitis #2 hypotension suspect hypocortisolism #3 depression #4 leukocytosis is likely reactive Plan Continue with antibiotics empirically. C. diff is negative Cortisol level will be done. IV fluid bolus Maintain systolic pressure greater than 90
[2016-10-11] MEDS: LEVOFLOXACIN 500MG-D5W PMX 500 MG in DEXTROSE/WATER 1 100ML.BAG IVPB SCH (19:57)
[2016-10-12] MEDS: metroNIDAZOLE-NS PMX 500 MG in SALINE 1 100ML.BAG IVPB SCH ×4 (00:08→17:17)
[2016-10-12] MEDS: SODIUM CHLORIDE 0.9% 1,000 ML IV SCH ×3 (06:21→12:31)
[2016-10-12 08:37] LABS: Basophils % (A) 0 %; CH 31.7; CHCM 33.2; Eosinophils # (A) 0.2 k/uL (0-0.7); Eosinophils % (A) 1 %; HCT 33.5 % (34.0-46.0); HDW 2.12; HGB 10.7 gm/dL (11.4-16.0); Luc # (Auto) 0.14; Luc % (Auto) 1; Lymphocytes # (A) 1.8 k/uL (1.0-4.8); Lymphocytes % (A) 15 %; MCH 30.8 pg (25.0-35.0); MCV 96.1 fL (80.0-100.0); Mean Platelet Volume 8.5; Monocytes # (A) 0.7 k/uL (0-1.0); Monocytes % (A) 6 %; Neutrophils # (A) 8.9 k/uL (1.3-7.7); Neutrophils % (A) 76 %; RBC 3.48 m/uL (3.80-5.40); RDW 12.6 % (11.5-15.5); WBC 11.7 k/uL (3.8-10.6); WBC (Perox) 11.73
[2016-10-12] MEDS: PANTOPRAZOLE 40 MG/10 ML VIAL IV SCH (08:41)
[2016-10-12 08:43] LABS: ALT 26 U/L (9-52); AST 14 U/L (14-36); Alkaline Phosphatase 79 U/L (38-126); Anion Gap 7 mmol/L; Blood Urea Nitrogen 4 mg/dL (7-17); Calcium 8.7 mg/dL (8.4-10.2); Carbon Dioxide 25 mmol/L (22-30); Chloride 107 mmol/L (98-107); Glucose 77 mg/dL (74-99); Non-African American GFR(MDRD) >60 (>60 ml/min/1.73 sqM); Potassium 3.6 mmol/L (3.5-5.1); Sodium 139 mmol/L (137-145); Total Bilirubin 0.3 mg/dL (0.2-1.3); Total Protein 5.3 g/dL (6.3-8.2)
[2016-10-12] MEDS: ONDANSETRON 4 MG/2 ML VIAL IVP PRN ×2 (08:51→18:43)
[2016-10-12] MEDS ORDERED: COSYNTROPIN 0.25 MG VIAL IVP ONE (14:10)
[2016-10-12] MEDS ORDERED: RX INFO: IV CONTRAST WAS GIVEN 1 EACH MISC MISCELLANE PRN (17:48)
--- NOTE | 2016-10-12 19:13 | P.PN ---
Subjective Is a 51-year-old female with history of depression comes in to the hospital with the sudden onset abdominal pain in the middle of the night. Patient was in good health prior to that. Patient initially attributed it to food poisoning Patient thereafter noted does significant amount of blood in her stools pain improved significantly over the last few hours. Patient was admitted to the hospital computed tomography scan of abdomen shows diffuse inflammation of the colon Patient's blood pressures were slightly lower. On questioning patient states that her blood pressures are always on the lower side state to have intermittent episodes of dizziness states that any change in position patient has to be careful and takes more time to adjust to change in position Today patient blood pressure systolic was less than 90 millimeters mercury EKG did not reveal any ST-T wave changes. Patient has not had a bowel movement since then. Last colonoscopy was 3 months [address] garces 09/11/16 states to have intermittent episodes of dizziness abdominal pain is slightly improved however complaints of diffuse pain Physical exam Gen. appearance oriented 3 in no distress Neck is supple no JVD Lungs good air entry clear to auscultation no rhonchi or wheezing Heart S1-S2 heard regular rate and rhythm no murmurs appreciated Abdomen is soft tender diffusely no organomegaly bowel sounds are intact Neurologically cranial nerves II-12 grossly intact no focal motor or sensory deficits noted Skin no abnormalities appreciated Objective - Vital Signs Vital signs: Vital Signs Temp 99.6 F 10/12/16 15:00 Pulse 83 10/12/16 15:00 Resp 16 10/12/16 15:00 BP 102/59 10/12/16 15:00 Pulse Ox 98 10/12/16 15:00 Intake & Output 10/12/16 10/12/16 10/13/16 06:59 18:59 06:59 Intake Total 200 Balance 200 Intake: Oral 200 Other: # Voids 2 2 - Labs CBC & Chem 7: 10/12/16 08:06 10/12/16 08:06 Labs: Abnormal Lab Results - Last 24 Hours (Table) 10/12/16 10/12/16 Range/Units 08:06 08:06 WBC 11.7 H (3.8-10.6) k/uL RBC 3.48 L (3.80-5.40) m/uL Hgb 10.7 L (11.4-16.0) gm/dL Hct 33.5 L (34.0-46.0) % Neutrophils # 8.9 H (1.3-7.7) k/uL BUN 4 L (7-17) mg/dL Total Protein 5.3 L (6.3-8.2) g/dL Albumin 3.2 L (3.5-5.0) g/dL Assessment and Plan Plan: #1 abdominal pain likely secondary to ischemic colitis #2 hypotension suspectsecondary adrenal insufficiency #3 depression #4 leukocytosis is likely reactive Plan Continue with antibiotics empirically. C. diff is negative cosynotropin test was positive acth is ordered pt will be started on solucortef 20mg bid if symptoms improved without ivf pt should continue and follow up with an physician office secretary ct head with iv contrast coronal view to rule out pituitary adenoma Maintain systolic pressure greater than 90
--- NOTE | 2016-10-12 19:23 | CT ---
EXAMINATION TYPE: CT brain w con DATE OF EXAM: 10/12/2016 COMPARISON: To 314 HISTORY: Patient complains of diarrhea and low blood pressure. CT DLP: 945.5 mGycm Automated exposure control for dose reduction was used. CONTRAST: CT scan of the head is performed with IV Contrast, patient injected with 100 mL of Omnipaque 300. FINDINGS: Ventricles of normal size. There is no mass effect nor midline shift. There is no sign of intracrania l hemorrhage. There is no pathologic enhancement. The calvarium is intact. There is normal contrast i n the venous sinuses. IMPRESSION: Normal CT scan of the brain. No change.
[2016-10-12] MEDS ORDERED: NICOTINE 21MG/24HR PATCH TRANSDERM SCH (20:00)
[2016-10-12] MEDS: NICOTINE 7MG/24HR PATCH TRANSDERM SCH (20:25)
[2016-10-12] MEDS: HYDROCORTISONE 20 MG TAB PO SCH (20:36)
[2016-10-12] MEDS: LEVOFLOXACIN 500MG-D5W PMX 500 MG in DEXTROSE/WATER 1 100ML.BAG IVPB SCH (20:36)
[2016-10-13] MEDS: metroNIDAZOLE-NS PMX 500 MG in SALINE 1 100ML.BAG IVPB SCH ×2 (00:31→07:38)
[2016-10-13 07:31] VITALS: RESP 16
[2016-10-13] MEDS: HYDROCORTISONE 20 MG TAB PO SCH (07:46)
[2016-10-13] MEDS: PANTOPRAZOLE 40 MG/10 ML VIAL IV SCH (07:46)
[2016-10-13] MEDS: NICOTINE 7MG/24HR PATCH TRANSDERM SCH (07:47)
[2016-10-13] MEDS ORDERED: PARoxetine 10 MG TAB PO SCH ×2 (09:00)
[2016-10-13] MEDS ORDERED: PAROXETINE 12.5 MG PO SCH (09:30)
[2016-10-13 15:26] VITALS: BP 104/52; PULSE 83; TEMP 97.2
--- NOTE | 2016-10-13 15:58 | P.DS ---
Providers Date of admission: 10/10/16 23:16 Attending physician: Dorie Rdz Primary care physician: Anival Ponce [facility] Course: Is a 51-year-old female with history of depression comes in to the hospital with the sudden onset abdominal pain in the middle of the night. Patient was in good health prior to that. Patient initially attributed it to food poisoning Patient thereafter noted does significant amount of blood in her stools pain improved significantly over the last few hours. Patient was admitted to the hospital computed tomography scan of abdomen shows diffuse inflammation of the colon Patient's blood pressures were slightly lower. On questioning patient states that her blood pressures are always on the lower side state to have intermittent episodes of dizziness states that any change in position patient has to be careful and takes more time to adjust to change in position Today patient blood pressure systolic was less than 90 millimeters mercury EKG did not reveal any ST-T wave changes. Patient has not had a bowel movement since then. Last colonoscopy was 3 months [address] garces 09/11/16 states to have intermittent episodes of dizziness abdominal pain is slightly improved however complaints of diffuse pain Physical exam Gen. appearance oriented 3 in no distress Neck is supple no JVD Lungs good air entry clear to auscultation no rhonchi or wheezing Heart S1-S2 heard regular rate and rhythm no murmurs appreciated Abdomen is soft tender diffusely no organomegaly bowel sounds are intact Neurologically cranial nerves II-12 grossly intact no focal motor or sensory deficits noted Skin no abnormalities appreciated Assessment and Plan Plan: #1 abdominal pain likely secondary to ischemic colitis #2 hypotension suspectsecondary adrenal insufficiency #3 depression #4 leukocytosis is likely reactive #5 Central hypothyroidism #6 secondary adrenal insufficiency Diagnosis ACTH level was 5 Cortisol level was 6. Infusion of 250 mics of cosyntropin cortisol increased to 16 at 30 minutes and 23 at 60 minutes TSH was 0.9 and T4 was 0.75 Patient will be started on Solu-Cortef 20 mg by mouth twice a day and Synthroid 25 mics is recommended to follow-up with a youth care worker Patient Condition at Discharge: Fair Plan - Discharge Summary New Discharge Prescriptions: New Hydrocortisone [Cortef] 20 mg PO BID #60 tab Levothyroxine Sodium [Synthroid] 25 mcg PO DAILY #30 tab Continue Ranitidine HCl 150 mg PO DAILY PARoxetine HCL [Paxil Cr] 12.5 mg PO QAM Janak/D3/Mag11/Zinc/Lab Pack Chemist/Travis/Bor [Caltrate 600+D Plus Tablet] 1 tab PO DAILY Discharge Medication List PARoxetine HCL [Paxil Cr] 12.5 mg PO QAM 08/02/14 [History] Ranitidine HCl 150 mg PO DAILY 08/02/14 [History] Janak/D3/Mag11/Zinc/Lab Pack Chemist/Travis/Bor [Caltrate 600+D Plus Tablet] 1 tab PO DAILY 07/30 [History] Hydrocortisone [Cortef] 20 mg PO BID #60 tab 10/13/16 [Rx] Levothyroxine Sodium [Synthroid] 25 mcg PO DAILY #30 tab 10/13/16 [Rx] Follow up Appointment(s)/Referral(s): Anival Ponce MD [Primary Care Provider] - 10/14/16 1:30 am Justine Zuniga MD [STAFF PHYSICIAN] - 1 Week (office will call with apt. date and time. Pt information was sent to office) Patient Instructions/Handouts: Ulcerative Colitis (DC) Activity/Diet/Wound Care/Special Instructions: return to work on thursday10/20/16 without activity restriction Discharge Disposition: HOME SELF-CARE
[2016-10-14] MEDS ORDERED: PAROXETINE 12.5 MG PO SCH (09:00)
== END 2016-10-13 15:34 | disposition home or self-care (01) | DRG 394 ==
LOC: EC 14:45 → 4MS4W 23:16
PROVIDERS: ADMIT Internal Medicine; ATTEND Internal Medicine
DX: K55.9 Vascular disorder of intestine, unspecified (principal); E27.49 Other adrenocortical insufficiency; I95.9 Hypotension, unspecified; F32.9 Major depressive disorder, single episode, unspecified; E03.9 Hypothyroidism, unspecified; K21.9 Gastro-esophageal reflux disease without esophagitis; F90.9 Attention-deficit hyperactivity disorder, unspecified type; F17.200 Nicotine dependence, unspecified, uncomplicated; Z79.899 Other long term (current) drug therapy; Z88.1 Allergy status to other antibiotic agents; Z90.710 Acquired absence of both cervix and uterus
CPT/HCPCS: 36415; 70460; 74177; 80053; 82024; 82272; 82533; 83605; 83690; 84439; 84443; 85025; 85610; 87324; 96361; 96365; 96367; 96375; 96376; 99285

== ENCOUNTER → 2016-10-23 | Outpatient (CLI) | payer BC | END | disposition home or self-care (01) | LOC: LABWHC1 07:06 | PROVIDERS: ATTEND Internal Medicine Endocrinology, Diabetes & Metabolism | DX: D35.2 Benign neoplasm of pituitary gland (principal); E27.40 Unspecified adrenocortical insufficiency | CPT/HCPCS: 36415; 82024; 82533; 83001; 83002; 84146; 84439; 84443 ==

== ENCOUNTER → 2016-11-03 | Outpatient (CLI) | payer BC ==
--- NOTE | 2016-11-03 21:20 | MR ---
EXAMINATION TYPE: MR pituitary wo/w con DATE OF EXAM: 11/03/2016 COMPARISON: CT brain October 12, 2016. HISTORY: Adrenal insufficiency, pituitary tumor TECHNIQUE: Multiplanar, multisequence images of the brain and brainstem is performed without and with IV contras t, utilizing 6 mL intravenous Gadavist . Pituitary gland protocol. FINDINGS: Pituitary gland is normal in size within sella turcica. Pituitary stalk shows normal enhanc ement in the midline. Pituitary gland shows fairly homogeneous enhancement without definitive areas o f nonenhancement to suggest microadenoma. Optic chiasm is not effaced. No gross hydrocephalus is seen. Craniocervical junction is maintained. IMPRESSION: No convincing MRI evidence for pituitary macro or microadenoma.
== END | disposition home or self-care (01) ==
LOC: RADMRIMAIN 18:52
PROVIDERS: ATTEND Internal Medicine Endocrinology, Diabetes & Metabolism
DX: D35.2 Benign neoplasm of pituitary gland (principal)
CPT/HCPCS: 70553; A9581

== ENCOUNTER → 2017-01-05 | Outpatient (CLI) | payer BC | END | disposition home or self-care (01) | LOC: LABWHC1 07:12 | PROVIDERS: ATTEND Internal Medicine Endocrinology, Diabetes & Metabolism | DX: E03.8 Other specified hypothyroidism (principal); E27.49 Other adrenocortical insufficiency | CPT/HCPCS: 36415; 82024; 82533; 84439; 84443 ==

== ENCOUNTER → 2017-04-20 | Outpatient (CLI) | payer BC ==
[2017-04-20 10:13] LABS: T4, Free (Free Thyroxine) 0.87 ng/dL (0.78-2.19)
== END | disposition home or self-care (01) ==
LOC: LABWHC1 09:11
PROVIDERS: ATTEND Internal Medicine Endocrinology, Diabetes & Metabolism
DX: E03.8 Other specified hypothyroidism (principal); E27.49 Other adrenocortical insufficiency
CPT/HCPCS: 36415; 82024; 82533; 84439; 84443

== ENCOUNTER → 2017-04-29 | Outpatient (CLI) | payer BC ==
--- NOTE | 2017-04-29 12:05 | FL ---
EXAMINATION TYPE: FL UGI w esophagus DATE OF EXAM: 04/29/2017 CLINICAL INDICATION: 51-year-old female with prior history of peptic ulcer disease, patient with long -standing reflux and increasing burning sensation in stomach. COMPARISON: 04/15/2010 Total Fluoroscopy Time: 1 minute 32 seconds Total images: 61, last image hold save screens were primarily utilized. FINDINGS: The cervical and thoracic portions have a normal course and caliber. Minimal occasional tertiary sarah staltic contractions are seen. The mucosa is normal and no persistent filling defect is encountered. There is a moderate-sized sliding hiatal hernia and moderate to severe spontaneous gastroesophageal r eflux when the patient is supine. Scattered small rounded filling defects within the stomach could represent air bubbles from effervesc ent granules or small hyperplastic polyps. No discrete ulceration is identified at this time. Otherwise, the stomach and duodenum show a normal mucosal pattern. IMPRESSION: 1. Moderate sized sliding hiatal hernia with moderate to severe spontaneous gastroesophageal reflux. 2. Either air bubbles or small hyperplastic polyps in the stomach. Findings can be seen in the settin g of gastritis. 3. No suspicious filling defect or discrete ulcer is seen at this time.
== END | disposition home or self-care (01) ==
LOC: RADFLMAIN 10:41
PROVIDERS: ATTEND Family Medicine
DX: K44.9 Diaphragmatic hernia without obstruction or gangrene (principal); K21.9 Gastro-esophageal reflux disease without esophagitis
CPT/HCPCS: 74240

== ENCOUNTER 2018-06-07 01:08 | Emergency (ER) | payer BC ==
--- NOTE | 2018-06-07 01:51 | ED ---
Head Injury HPI - General Chief complaint: Head Injury Stated complaint: Head Injury Source: patient Mode of arrival: ambulatory Limitations: no limitations - History of Present Illness Initial comments: She also pleasant 52-year-old female presents the emergency department this morning for evaluation of headache nausea and vomiting. Patient reports that during the day today she was hoping her daughter move into a new place, she reports that 2 times during the day she stood up and struck the top of her head on a low ceiling in the carport. She reports that the first time this happened she did see stars but did not lose consciousness the second time she did not hit it as hard. She reports that she took some ibuprofen for a mild headache and was feeling fine throughout the evening however when she went to lay down to go to bed she began feeling like the room was spinning around her she felt dizzy and got nauseated she then got up and sat on the couch but continued to feel nauseated and unwell which prompted her come to the ER for evaluation of possible concussion. Patient reports she has had concussion in the past, she's never had a significant brain injury. She does not take any antiplatelet or anticoagulant medications. - Related Data Home Medications Medication Instructions Recorded Confirmed PARoxetine HCL [Paxil Cr] 12.5 mg PO QAM 08/02/14 10/10/16 Ranitidine HCl 150 mg PO DAILY 08/02/14 10/10/16 Janak/D3/Mag11/Zinc/[employer] Specialist/Travis/Bor 1 tab PO DAILY 07/30/16 10/10/16 [Caltrate 600+D Plus Tablet] Previous Rx's Medication Instructions Recorded Hydrocortisone [Cortef] 20 mg PO BID #60 tab 10/13/16 Levothyroxine Sodium [Synthroid] 25 mcg PO DAILY #30 tab 10/13/16 Allergies/Adverse reactions: Allergies Allergy/AdvReac Type Severity Reaction Status Date / Time Tetracyclines AdvReac Dizzy Verified 06/07/18 01:28 Review of Systems ROS Statement: Those systems with pertinent positive or pertinent negative responses have been documented in the HPI. ROS Other: All systems not noted in ROS Statement are negative. Past Medical History Past Medical History: GERD/Reflux Additional Past Medical History / Comment(s): COLITIS. Hx left ovarian cyst, diverticula History of Any Multi-Drug Resistant Organisms: None Reported Past Surgical History: Hysterectomy Additional Past Surgical History / Comment(s): hemrrhoidectomy, bunion surgery Past Anesthesia/Blood Transfusion Reactions: Motion Sickness Additional Past Anesthesia/Blood Transfusion Reaction / Comment(s): mild Past Psychological History: ADD/ADHD Smoking Status: Current some day smoker Past Alcohol Use History: Rare Past Drug Use History: None Reported - Past Family History Mother Additional Family Medical History / Comment(s): colon cancer ovarian and breast Father Additional Family Medical History / Comment(s): lukemia General Exam - General Exam Comments Initial Comments: Physical Exam GENERAL: Patient is well-developed and well-nourished. Patient is nontoxic and well- hydrated and is in no distress. HENT: Normocephalic, small contusion on the crown of the scalp no open lacerations abrasions or injuries TMs normal bilaterally no hemotympanum no Farley's signs or raccoon eyes EYES: PERRL, EOMI PULMONARY: Unlabored respirations. No audible rales rhonchi or wheezing was noted. CARDIOVASCULAR: There is a regular rate and rhythm without any murmurs gallops or rubs. ABDOMEN: Soft and nontender with normal bowel sounds. SKIN: Skin is clear with no lesions or rashes and otherwise unremarkable. : Deferred NEUROLOGIC: Patient is alert and oriented x3. Moving all extremities spontaneously MUSCULOSKELETAL: Normal extremities with adequate strength and full range of motion. No lower extremity swelling or edema. No calf tenderness. PSYCHIATRIC: Normal psychiatric evaluation. Limitations: no limitations Limitations: no limitations Course Vital Signs 06/07/18 01:24 Temperature 98.2 F Pulse Rate 81 Respiratory 18 Rate Blood Pressure 111/69 O2 Sat by Pulse 98 Oximetry Medical Decision Making - Medical Decision Making Patient was seen and evaluated history is obtained from the patient and at bedside Patient had 2 episodes of moderate trauma to the head throughout the day today she then developed headache room spinning sensation nausea and vomiting I will obtain a computed tomography scan of the brain to evaluate for acute intracranial pathology CT was negative, Zofran ODT was ordered for nausea concussion symptoms were discussed with the patient has been at bedside patient will be provided with a work note for 2 days off so that she can rest. The importance of brain rest was discussed. All questions pertaining care were answered the best my ability patient was discharged home in stable condition Disposition Clinical Impression: Concussion without loss of consciousness, Contusion of scalp Disposition: HOME SELF-CARE Condition: Stable Instructions (If sedation given, give patient instructions): Concussion (ED), Post Concussion Syndrome (ED) Is patient prescribed a controlled substance at d/c from ED?: No Referrals: Anival Ponce MD [Primary Care Provider] - 1-2 days
--- NOTE | 2018-06-07 02:12 | CT ---
EXAM: CT Head Without Intravenous Contrast CLINICAL HISTORY: ITS.REASON CT Reason: headache after head injury TECHNIQUE: Axial computed tomography images of the head/brain without intravenous contrast. This CT exam was performed using one or more of the following dose reduction techniques: automated exposure control, adjustment of the mA and/or kV according to patient size, and/or use of iterative reconstruction technique. COMPARISON: No relevant prior studies available. FINDINGS: Brain: No hemorrhage. No edema. Ventricles: Unremarkable. No ventriculomegaly. Bones/joints: No acute fracture. Soft tissues: Unremarkable. Sinuses: No fluid levels. Mastoid air cells: Unremarkable as visualized. No mastoid effusion. IMPRESSION: No acute intracranial findings EXAM: CT Cervical Spine Without Intravenous Contrast CLINICAL HISTORY: ITS.REASON CT Reason: headache after head injury TECHNIQUE: Axial computed tomography images of the cervical spine without intravenous contrast. This CT exam was performed using one or more of the following dose reduction techniques: automated exposure control, adjustment of the mA and/or kV according to patient size, and/or use of iterative reconstruction technique. COMPARISON: No relevant prior studies available. FINDINGS: Vertebrae: No acute fracture. Discs/spinal canal/neural foramina: No suspicious findings. Soft tissues: Unremarkable. IMPRESSION: No acute findings.
[2018-06-07] MEDS ORDERED: ONDANSETRON 4 MG ODT STARTER PACK 2 TAB BTL PO STA (02:22)
[2018-06-07 02:42] VITALS: BP 112/75; PULSE 79; RESP 19; TEMP 98
== END 2018-06-07 02:30 | disposition home or self-care (01) ==
LOC: EC 01:08
DX: S06.0X0A Concussion without loss of consciousness, initial encounter (principal); S00.03XA Contusion of scalp, initial encounter; K21.9 Gastro-esophageal reflux disease without esophagitis; F90.9 Attention-deficit hyperactivity disorder, unspecified type; F17.200 Nicotine dependence, unspecified, uncomplicated; Z79.899 Other long term (current) drug therapy; Z88.1 Allergy status to other antibiotic agents; W22.8XXA Striking against or struck by other objects, initial encounter
CPT/HCPCS: 72125; 70450; 99283; S0119

== ENCOUNTER 2019-09-16 09:57 | Observation (INO) | payer BC ==
[2019-09-16] MEDS ORDERED: SODIUM CHLORIDE 0.9% 1,000 ML IV STA ×2 (10:32)
[2019-09-16] MEDS ORDERED: MORPHINE SULFATE 2 MG/ML SYRINGE IVP STA (10:32)
[2019-09-16] MEDS ORDERED: ONDANSETRON 4 MG/2 ML VIAL IVP STA (10:32)
[2019-09-16] MEDS ORDERED: PANTOPRAZOLE 40 MG/10 ML VIAL IVP STA (10:32)
--- NOTE | 2019-09-16 10:36 | ED ---
Abdominal Pain HPI - General Chief Complaint: Abdominal Pain Stated Complaint: GI bleed, dizzy Time Seen by Provider: 09/16/19 10:02 Source: patient, RN notes reviewed, old records reviewed Mode of arrival: ambulatory Limitations: no limitations - History of Present Illness Initial Comments: 54-year-old female who presents emergency department today for evaluation for concern for cramping abdominal pain and diarrhea starting last night around 9:30 PM. Patient reports that she started noticed some bloody diarrhea. She reports she had a history of colitis years ago. She states she had a similar episode like this last year which caused her endocrine system to change and heavy placed on thyroid and different adrenal medications. Patient states that she at this time has no significant fatigue and shortness of breath or vomiting episodes. She does feel nauseous. She was feeling slightly dizzy when she gets a wave of cramping abdominal pain. - Related Data Home Medications Medication Instructions Recorded Confirmed PARoxetine HCL [Paxil Cr] 12.5 mg PO QAM 08/02/14 09/16/19 Cetirizine HCl [Zyrtec] 10 mg PO DAILY 09/16/19 09/16/19 Olopatadine HCl [Pataday] 1 drop BOTH EYES DAILY 09/16/19 09/16/19 Pantoprazole Sodium [Protonix] 40 mg PO BID 09/16/19 09/16/19 Allergies Allergy/AdvReac Type Severity Reaction Status Date / Time Tetracyclines AdvReac Dizzy Verified 09/16/19 10:54 Review of Systems ROS Statement: Those systems with pertinent positive or pertinent negative responses have been documented in the HPI. ROS Other: All systems not noted in ROS Statement are negative. Past Medical History Past Medical History: GERD/Reflux Additional Past Medical History / Comment(s): COLITIS. Hx left ovarian cyst, diverticula History of Any Multi-Drug Resistant Organisms: None Reported Past Surgical History: Hysterectomy Additional Past Surgical History / Comment(s): hemmroidectomy, bunion surgery Past Anesthesia/Blood Transfusion Reactions: Motion Sickness Additional Past Anesthesia/Blood Transfusion Reaction / Comment(s): mild Past Psychological History: ADD/ADHD Smoking Status: Current every day smoker Past Alcohol Use History: Rare Past Drug Use History: None Reported - Past Family History Mother Additional Family Medical History / Comment(s): colon cancer ovarian and breast Father Additional Family Medical History / Comment(s): lukemia General Exam - General Exam Comments Initial Comments: 54-year-old female. Alert and oriented 3. Patient appears in no significant distress at this time. Limitations: no limitations General appearance: alert, in no apparent distress Head exam: Present: atraumatic, normocephalic, normal inspection Eye exam: Present: normal appearance, PERRL, EOMI. Absent: scleral icterus, conjunctival injection, periorbital swelling ENT exam: Present: normal exam, mucous membranes moist Neck exam: Present: normal inspection. Absent: tenderness, meningismus, lymphadenopathy Respiratory exam: Present: normal lung sounds bilaterally. Absent: respiratory distress, wheezes, rales, rhonchi, stridor Cardiovascular Exam: Present: regular rate, normal rhythm, normal heart sounds. Absent: systolic murmur, diastolic murmur, rubs, gallop, clicks GI/Abdominal exam: Present: soft, normal bowel sounds. Absent: distended, tenderness, guarding, rebound, rigid Rectal exam: Present: heme (+) stool (Bloody stool). Absent: normal inspection Extremities exam: Present: normal inspection, full ROM, normal capillary refill. Absent: tenderness, pedal edema, joint swelling, calf tenderness Back exam: Present: normal inspection Neurological exam: Present: alert, oriented X3, CN II-XII intact Psychiatric exam: Present: normal affect Skin exam: Present: warm, dry, intact, normal color. Absent: rash Course Vital Signs 09/16/19 09/16/19 09:58 11:41 Temperature 98.7 F Pulse Rate 106 H 74 Respiratory 20 16 Rate Blood Pressure 126/67 108/55 O2 Sat by Pulse 98 99 Oximetry Medical Decision Making - Medical Decision Making 54-year-old female presents to ED for diarrhea starting last night which is transient to 2 bloody bowel movements per she is on blood thinners. Vital signs stable. Emergency room and she did have one mucousy stool with some streaking of blood. She otherwise appears medically stable. She does have some left- sided abdominal tenderness. CT shows evidence of colitis. With a concern for bloody stool evidence of colitis will admit the Patient at this time for repeat CBCs and IV antibiotics. Consult to GI. - Lab Data Result diagrams: 09/16/19 10:35 09/16/19 10:35 Lab Results 09/16/19 09/16/19 09/16/19 Range/Units 10:35 10:35 10:35 WBC 12.3 H (3.8-10.6) k/uL RBC 4.16 (3.80-5.40) m/uL Hgb 12.8 (11.4-16.0) gm/dL Hct 38.2 (34.0-46.0) % MCV 91.9 (80.0-100.0) fL MCH 30.8 (25.0-35.0) pg MCHC 33.5 (31.0-37.0) g/dL RDW 12.3 (11.5-15.5) % Plt Count 296 (150-450) k/uL Neutrophils % 75 % Lymphocytes % 17 % Monocytes % 5 % Eosinophils % 1 % Basophils % 0 % Neutrophils # 9.2 H (1.3-7.7) k/uL Lymphocytes # 2.1 (1.0-4.8) k/uL Monocytes # 0.7 (0-1.0) k/uL Eosinophils # 0.2 (0-0.7) k/uL Basophils # 0.0 (0-0.2) k/uL PT 9.8 (9.0-12.0) sec INR 0.9 (<1.2) APTT 23.1 (22.0-30.0) sec Sodium 137 (137-145) mmol/L Potassium 4.2 (3.5-5.1) mmol/L Chloride 106 (98-107) mmol/L Carbon Dioxide 24 (22-30) mmol/L Anion Gap 7 mmol/L BUN 15 (7-17) mg/dL Creatinine 0.59 (0.52-1.04) mg/dL Est GFR (CKD-EPI)AfAm >90 (>60 ml/min/1.73 sqM) Est GFR (CKD-EPI)NonAf >90 (>60 ml/min/1.73 sqM) Glucose 95 (74-99) mg/dL Plasma Lactic Acid Hardeep (0.7-2.0) mmol/L Calcium 9.6 (8.4-10.2) mg/dL Total Bilirubin 0.5 (0.2-1.3) mg/dL AST 20 (14-36) U/L ALT 9 (4-34) U/L Alkaline Phosphatase 82 (38-126) U/L Total Protein 7.1 (6.3-8.2) g/dL Albumin 4.4 (3.5-5.0) g/dL Amylase 61 (30-110) U/L Lipase 61 (23-300) U/L Urine Color Urine Appearance (Clear) Urine pH (5.0-8.0) Ur Specific Laura (1.001-1.035) Urine Protein (Negative) Urine Glucose (UA) (Negative) Urine Ketones (Negative) Urine Blood (Negative) Urine Nitrite (Negative) Urine Bilirubin (Negative) Urine Urobilinogen (<2.0) mg/dL Ur Leukocyte Esterase (Negative) Urine RBC (0-5) /hpf Urine WBC (0-5) /hpf Ur Squamous Epith Cells (0-4) /hpf Urine Bacteria (None) /hpf 09/16/19 09/16/19 Range/Units 10:35 11:24 WBC (3.8-10.6) k/uL RBC (3.80-5.40) m/uL Hgb (11.4-16.0) gm/dL Hct (34.0-46.0) % MCV (80.0-100.0) fL MCH (25.0-35.0) pg MCHC (31.0-37.0) g/dL RDW (11.5-15.5) % Plt Count (150-450) k/uL Neutrophils % % Lymphocytes % % Monocytes % % Eosinophils % % Basophils % % Neutrophils # (1.3-7.7) k/uL Lymphocytes # (1.0-4.8) k/uL Monocytes # (0-1.0) k/uL Eosinophils # (0-0.7) k/uL Basophils # (0-0.2) k/uL PT (9.0-12.0) sec INR (<1.2) APTT (22.0-30.0) sec Sodium (137-145) mmol/L Potassium (3.5-5.1) mmol/L Chloride (98-107) mmol/L Carbon Dioxide (22-30) mmol/L Anion Gap mmol/L BUN (7-17) mg/dL Creatinine (0.52-1.04) mg/dL Est GFR (CKD-EPI)AfAm (>60 ml/min/1.73 sqM) Est GFR (CKD-EPI)NonAf (>60 ml/min/1.73 sqM) Glucose (74-99) mg/dL Plasma Lactic Acid Hardeep 0.8 (0.7-2.0) mmol/L Calcium (8.4-10.2) mg/dL Total Bilirubin (0.2-1.3) mg/dL AST (14-36) U/L ALT (4-34) U/L Alkaline Phosphatase (38-126) U/L Total Protein (6.3-8.2) g/dL Albumin (3.5-5.0) g/dL Amylase (30-110) U/L Lipase (23-300) U/L Urine Color Light Yellow Urine Appearance Clear (Clear) Urine pH 6.5 (5.0-8.0) Ur Specific Laura 1.005 (1.001-1.035) Urine Protein Negative (Negative) Urine Glucose (UA) Negative (Negative) Urine Ketones Negative (Negative) Urine Blood Small H (Negative) Urine Nitrite Negative (Negative) Urine Bilirubin Negative (Negative) Urine Urobilinogen <2.0 (<2.0) mg/dL Ur Leukocyte Esterase Negative (Negative) Urine RBC 1 (0-5) /hpf Urine WBC 1 (0-5) /hpf Ur Squamous Epith Cells 1 (0-4) /hpf Urine Bacteria Rare H (None) /hpf - Radiology Data Radiology results: report reviewed Is a significant infectious or inflammatory acute colitis proximal sigmoid colon with mild wall thickening. Mild circumference bladder wall thickening correlate to exclude cystitis. Tiny hiatal hernia. Disposition Clinical Impression: GI bleed, Colitis Disposition: ADMITTED IP TO THIS HOSP Condition: Good Instructions (If sedation given, give patient instructions): Gastrointestinal Bleeding (ED) Additional Instructions: Please use medication as discussed. Please follow up with family doctor if symptoms have not improved over the next two days. Please return to the emergency room if your symptoms increase or worsen or for any other concerns. Referrals: Anival Ponce MD [Primary Care Provider] - 1-2 days Time of Disposition: 13:02
[2019-09-16 10:43] LABS: Basophils % (A) 0 %; Eosinophils # (A) 0.2 k/uL (0-0.7); Eosinophils % (A) 1 %; HCT 38.2 % (34.0-46.0); HGB 12.8 gm/dL (11.4-16.0); Lymphocytes # (A) 2.1 k/uL (1.0-4.8); Lymphocytes % (A) 17 %; MCH 30.8 pg (25.0-35.0); MCHC 33.5 g/dL (31.0-37.0); MCV 91.9 fL (80.0-100.0); Mean Platelet Volume 8.2; Monocytes # (A) 0.7 k/uL (0-1.0); Monocytes % (A) 5 %; Neutrophils # (A) 9.2 k/uL (1.3-7.7); Neutrophils % (A) 75 %; Platelet Count 296 k/uL (150-450); RBC 4.16 m/uL (3.80-5.40); RDW 12.3 % (11.5-15.5); WBC 12.3 k/uL (3.8-10.6)
[2019-09-16 10:56] LABS: INR 0.9 (<1.2); Partial Thromboplastin Time 23.1 sec (22.0-30.0); Prothrombin Time 9.8 sec (9.0-12.0)
[2019-09-16 11:09] LABS: ALT 9 U/L (4-34); AST 20 U/L (14-36); African American GFR (CKD) >90 (>60 ml/min/1.73 sqM); Albumin 4.4 g/dL (3.5-5.0); Alkaline Phosphatase 82 U/L (38-126); Amylase 61 U/L (30-110); Anion Gap 7 mmol/L; Blood Urea Nitrogen 15 mg/dL (7-17); Calcium 9.6 mg/dL (8.4-10.2); Carbon Dioxide 24 mmol/L (22-30); Chloride 106 mmol/L (98-107); Glucose 95 mg/dL (74-99); Non-African American GFR(CKD) >90 (>60 ml/min/1.73 sqM); Potassium 4.2 mmol/L (3.5-5.1); Sodium 137 mmol/L (137-145); Total Bilirubin 0.5 mg/dL (0.2-1.3); Total Protein 7.1 g/dL (6.3-8.2)
[2019-09-16 11:47] LABS: Appearance,Urine Clear (Clear); Bacteria,Urine Rare /hpf; Bilirubin,Urine Negative (Negative); Blood,Urine Small (Negative); Color,Urine Light Yellow; Glucose,Urine (UA) Negative (Negative); Ketones,Urine Negative (Negative); Leukocyte Esterase,Urine Negative (Negative); Nitrite,Urine Negative (Negative); PH, Urine 6.5 (5.0-8.0); Protein,Urine Negative (Negative); RBC,Urine 1 /hpf (0-5); Specific Gravity,Urine 1.005 (1.001-1.035); Squamous Epithelial Cell,Urine 1 /hpf (0-4); Urobilinogen,Urine <2.0 mg/dL (<2.0); WBC,Urine 1 /hpf (0-5)
--- NOTE | 2019-09-16 12:17 | CT ---
EXAMINATION TYPE: CT abdomen pelvis w con DATE OF EXAM: 09/16/2019 COMPARISON: 10/10/2016 HISTORY: 54-year-old female diarrhea, rectal bleeding. Abdominal pain. TECHNIQUE: Contiguous axial scanning of the abdomen and pelvis following administration of 100 ml Iso linn 300 IV contrast. Delayed images through the kidneys and coronal/sagittal reconstructions perform ed. CT DLP: 587.7 mGycm Automated exposure control for dose reduction was used. FINDINGS: Heart normal size without pericardial effusion. Lung bases clear without pleural effusion. Tiny hiatal hernia. Small amount of focal fat along the anterior falciform ligament. Otherwise, no focal liver lesion or biliary ductal dilatation. Portal venous system is patent. Gallbladder, adrenal glands, spleen, pancreas, and left kidney appear within normal limits. 5 mm hypodensity mid right kidney, delayed axial image 25 was present back on 2016 suggesting a benig n cyst. No dilated small bowel, free fluid, free air. Normal appendix. No mesenteric or retroperitoneal lymphadenopathy. [id number] atherosclerotic calcifications infrarenal abdominal aorta. Moderate abnormal wall thickening lower descending colon extending to the mid sigmoid colon. Minimal pericolonic fat stranding. Bladder is collapsed but with mild circumferential wall thickening. No abnormal fluid collection pelv is or pelvic lymphadenopathy. Uterus is surgically absent. Neither ovary clearly seen. Pelvic phlebol ith. Bones: Mild degenerative change of the hips. No osseous destructive process. IMPRESSION: 1. NONSPECIFIC INFECTIOUS OR INFLAMMATORY ACUTE COLITIS OF THE PROXIMAL TO MID SIGMOID COLON WITH MOD ERATE WALL THICKENING. 2. MILD CIRCUMFERENTIAL BLADDER WALL THICKENING. CORRELATE TO EXCLUDE CYSTITIS. 3. TINY HIATAL HERNIA
[2019-09-16] MEDS ORDERED: KETOROLAC 30 MG/ML 1 ML VIAL IVP PRN (13:04)
[2019-09-16] MEDS ORDERED: IBUPROFEN 400 MG TAB PO PRN (13:04)
[2019-09-16] MEDS ORDERED: NALOXONE 0.4 MG/ML 1 ML VIAL IV PRN (13:04)
[2019-09-16] MEDS ORDERED: ONDANSETRON 4 MG/2 ML VIAL IVP PRN (13:04)
[2019-09-16] MEDS ORDERED: MORPHINE SULFATE 4 MG/ML SYRINGE IV PRN (13:04)
[2019-09-16] MEDS ORDERED: ACETAMINOPHEN TAB 325 MG TAB PO PRN (13:04)
[2019-09-16] MEDS ORDERED: PIPERACILLIN-TAZOBACTAM 3.375 GM in SODIUM CHLORIDE 0.9% 100 ML IVPB STA (13:06)
[2019-09-16] MEDS: SODIUM CHLORIDE 0.9% 1,000 ML IV SCH (14:07)
[2019-09-16 15:47] VITALS: RESP 18
[2019-09-16] MEDS ORDERED: HYDROcodone/APAP 5-325MG 1 EACH TAB PO PRN (17:59)
[2019-09-16] MEDS ORDERED: ALPRAZolam 0.25 MG TAB PO PRN (17:59)
[2019-09-16] MEDS ORDERED: TEMAZEPAM 15 MG CAP PO PRN (17:59)
[2019-09-16] MEDS: PANTOPRAZOLE 40 MG TABLET PO SCH (17:59)
--- NOTE | 2019-09-16 19:58 | HP ---
HISTORY AND PHYSICAL DATE OF SERVICE: 09/16/2019 CHIEF COMPLAINT: Abdominal pain. HISTORY OF PRESENT ILLNESS: This 54-year-old woman with a past medical history of multiple medical problems, including GERD, history of colitis, history of ovarian cyst, being followed by Dr. Anival Ponce in the outpatient setting, was not feeling well since last night. The patient had cramping abdominal pain about 9:30 p.m. The patient also had some bloody diarrhea. The patient apparently had some colitis several years ago, and during that time the patient was diagnosed to have ischemic colitis possibly. The patient came to [facility]. CT scan of the abdomen and pelvis was done which showed nonspecific infectious or inflammatory acute colitis in the proximal to the mid sigmoid colon with moderate wall thickening. Mild circumferential bladder wall thickening was also noted. There is no history of any fever, rigor or chills. No history of headache, loss of consciousness, seizures at this time. PAST MEDICAL HISTORY: GERD, colitis, ischemic colitis, hysterectomy, history of ADD, ADHD. MEDICATIONS: Medications prior to admission include: 1. Zyrtec 10 mg daily. 2. Protonix 40 mg b.i.d. 3. Paxil CR 12.5 mg each morning. 4. Pataday 1 drop both eyes daily. ALLERGIES: TETRACYCLINE. FAMILY HISTORY: History of colon cancer, ovarian cancer and breast cancer. SOCIAL HISTORY: History of smoking history. History of alcohol intake. REVIEW OF SYSTEMS: ENT: No diminished hearing. No diminished vision. CARDIOVASCULAR SYSTEM: No angina, palpitations. RESPIRATORY SYSTEM: No cough, hemoptysis. GI: No nausea, vomiting. : No dysuria or retention. NERVOUS SYSTEM: No numbness, weakness. ALLERGY/IMMUNOLOGY: No asthma, hayfever. MUSCULOSKELETAL: As mentioned earlier. HEMATOLOGY/ONCOLOGY: No history of anemia. ENDOCRINE: No history of diabetes, hypothyroidism. CONSTITUTIONAL: As mentioned earlier. DERMATOLOGY: Negative. RHEUMATOLOGY: Negative. PSYCHIATRY: As mentioned earlier. PHYSICAL EXAMINATION: Patient is alert, oriented x3. Pulse is 74, blood pressure 108/55, respirations 16, temperature 98.7, pulse ox 98% on room air. HEENT: Conjunctivae normal. Oral mucosa moist. NECK: No jugular venous distention. No carotid bruit. No lymph node enlargement. CARDIOVASCULAR SYSTEM: S1, S2 muffled. RESPIRATORY SYSTEM: Breath sounds diminished at the bases. A few scattered rhonchi and crackles. ABDOMEN: Soft. Mild diffuse tenderness in the left lower part. LEGS: No edema. No swelling. NERVOUS SYSTEM: Higher functions as mentioned earlier. Moves all 4 limbs. No focal motor or sensory deficit. LYMPHATICS: No lymph node palpable in neck, axillae or groin. SKIN: No ulcer, rash, bleeding. JOINTS: No active deforming arthropathy. LABS: Labs at this time: CBC, WBC 12.3. BMP noted. ASSESSMENT: 1. Acute bloody diarrhea and possible colitis, possibly ischemic or possibly infectious. 2. History of possible ischemic colitis previously. 3. History of gastroesophageal reflux disease. 4. History of ovarian cyst. 5. History hysterectomy. 6. History of attention deficit disorder, attention deficit hyperactivity disorder. 7. History of nicotine dependence. 8. FULL CODE. 9. Mild protein-calorie malnutrition with body mass index of 19.9. RECOMMENDATIONS AND DISCUSSION: In this 54-year-old woman who presented with multiple complex medical issues, we will monitor the patient closely, continue the current medications, continue symptomatic treatment. Will initiate broad-spectrum IV antibiotics. Patient has been started on IV Zosyn at this time. Otherwise, we will continue to monitor. Gastroenterology consult for possible endoscopies. Resume the home medications. DVT prophylaxis. The prognosis is guarded because of multiple complex medical issues. Further recommendations to follow. A copy of this dictation is being forwarded to Dr. Anival Ponce, who is the primary physician. MMODL / IJN: [id number] /
[2019-09-17] MEDS: SODIUM CHLORIDE 0.9% 1,000 ML IV SCH ×3 (00:39→17:58)
[2019-09-17] MEDS: PIPERACILLIN-TAZOBACTAM 3.375 GM in SODIUM CHLORIDE 0.9% 100 ML IVPB SCH ×4 (00:39→23:54)
[2019-09-17] MEDS: PANTOPRAZOLE 40 MG TABLET PO SCH ×2 (06:37→16:58)
[2019-09-17] MEDS: PARoxetine 10 MG TAB PO SCH (08:27)
[2019-09-17] MEDS: LORATADINE 10 MG TAB PO SCH (08:27)
[2019-09-17] MEDS: KETOTIFEN 0.025% OPHTH DROPS 5 ML BTL BOTH EYES SCH ×2 (08:38→21:13)
[2019-09-17] MEDS: NICOTINE 14MG/24HR PATCH TRANSDERM SCH (08:38)
--- NOTE | 2019-09-17 09:38 | PN ---
PROGRESS NOTE DATE OF SERVICE: 09/17/2019 This 54-year-old woman with a past medical history of multiple medical problems was admitted with abdominal pain, possible colitis. No chest pain. No palpitations. Empiric antibiotics. GI consultation pending. PHYSICAL EXAMINATION: Alert and oriented x3. Pulse 72, blood pressure 90/50, respiration 18, temperature 98.2, pulse ox 97% on room air. HEENT: Conjunctivae normal. Oral mucosa moist. NECK: No jugular venous distention. No lymph node enlargement. CARDIOVASCULAR: S1, S2, muffled. No S3, no S4, RESPIRATORY: Diminished breath sounds at the bases. No rhonchi, no crackles. ABDOMEN: Soft. Mild diffuse tenderness. LEGS: No edema, no swelling. NERVOUS SYSTEM: No focal motor or sensory deficits. LABS: Awaited. ASSESSMENT: 1. Acute bloody diarrhea, possible colitis, possibly ischemic or possibly infectious. 2. History of possible ischemic colitis previously. 3. History of gastroesophageal reflux disease. 4. History of ovarian cyst. 5. History of hysterectomy. 6. History of attention deficit disorder/attention deficit hyperactivity disorder. 7. History of nicotine dependence. 8. Mild protein-calorie malnutrition, body mass index 19.9. 9. FULL CODE. RECOMMENDATIONS AND DISCUSSION: I recommend to continue current medications, symptomatic treatment. Otherwise, continue with empiric antibiotics. Gastroenterology evaluation, possible colonoscopy. Repeat labs. Prognosis guarded. Further recommendations to follow. MMODL / IJN: [id number] /
--- NOTE | 2019-09-17 17:56 | CONS ---
CONSULTATION DATE OF SERVICE: September 17, 2019. REASON FOR CONSULTATION: Abdominal pain and bloody diarrhea. HISTORY OF PRESENT ILLNESS: The patient is a 54-year-old pleasant white female admitted to the hospital with acute onset of severe left lower quadrant abdominal pain on night followed by initially loose watery bowel movements and subsequent blood in the stool. She had about 7 or 8 of these episodes, came to the emergency room and subsequently admitted to the hospital for further evaluation. She still has some lower abdominal discomfort, but symptoms are gradually improving. She had her last bloody bowel movement about 12 hours ago. She did have a CT of the abdomen and pelvis done in the emergency room that showed thickening of the left colon consistent with acute colitis. She had a similar episode in 2017 at which time she was admitted to hospital and was told she has ischemic colitis. Subsequently, she had colonoscopy done by Dr. Zhou a few weeks later and the colonoscopy was completely normal. She does have family history of colon cancer and hence has colonoscopy every 5 years. PAST MEDICAL HISTORY: Significant for hypertension, gastroesophageal reflux disease, anxiety, depression. MEDICATIONS: Medications at home include: Zyrtec, Protonix, Paxil and Pataday. ALLERGIES: TO TETRACYCLINE. SOCIAL HISTORY: No smoking or alcohol use. FAMILY HISTORY: Unremarkable. REVIEW OF SYSTEMS: CARDIOPULMONARY: No chest pain or shortness of breath. no dysuria or hematuria. MUSCULOSKELETAL unremarkable. SKIN unremarkable. ENDOCRINE unremarkable. PSYCHIATRIC: History of anxiety/depression. NEUROLOGICAL: Unremarkable. ENT/VISION: Unremarkable. CONSTITUTIONAL: No recent weight loss. No fever, chills, night sweats. PAST SURGICAL HISTORY: Hemorrhoidectomy, hysterectomy, bunion surgery and multiple colonoscopies. FAMILY HISTORY: Mother had ovarian cancer and colon cancer and father had leukemia. PHYSICAL EXAMINATION: She appears comfortable in no apparent distress. Vital signs stable. Blood pressure is 92/57, pulse is 69. Temperature 98.5. HEENT examination unremarkable. Conjunctivae pink. Sclerae anicteric. Oral cavity no lesions. Neck: No JVD or lymph node enlargement. CHEST was clear to auscultation. HEART: Regular rate and rhythm. ABDOMEN: Soft. Tenderness in the left lower quadrant and suprapubic area. Rest of the abdomen benign. Bowel sounds are positive. No organomegaly. EXTREMITIES: No pedal edema. SKIN no rashes. NEUROLOGIC: Alert and oriented x3. No focal deficits. LABS: WBC 12.3, hemoglobin 12.8, platelets normal. Basic metabolic panel is within normal limits. IMPRESSION: This is a lady who presents to the hospital with acute onset of severe lower abdominal pain followed by bloody diarrhea of 2 days duration. Clinical picture is very consistent with acute ischemic colitis. CT of the abdomen did show segmental thickening of the sigmoid and distal descending colon consistent with acute colitis. Hemoglobin stable at 12.8 g/dL. She had a similar episode 3 years ago that resolved and a colonoscopy around the same time was unremarkable. RECOMMENDATIONS: 1. Continue to advance diet as tolerated. 2. Continue empiric antibiotics. 3. Monitor CBC on a daily basis. 4. If she is able to tolerate soft diet well, she can be discharged home today with outpatient followup in 2 3 weeks. Thank you for this consultation. MINGO / BERNARDINO: [id number] /
[2019-09-18] MEDS: SODIUM CHLORIDE 0.9% 1,000 ML IV SCH (06:36)
[2019-09-18] MEDS: PANTOPRAZOLE 40 MG TABLET PO SCH (06:37)
[2019-09-18] MEDS: PIPERACILLIN-TAZOBACTAM 3.375 GM in SODIUM CHLORIDE 0.9% 100 ML IVPB SCH (07:39)
[2019-09-18 07:46] VITALS: BP 108/52; PULSE 62; TEMP 98.7
[2019-09-18] MEDS: KETOTIFEN 0.025% OPHTH DROPS 5 ML BTL BOTH EYES SCH ×2 (08:01→08:55)
[2019-09-18] MEDS: NICOTINE 14MG/24HR PATCH TRANSDERM SCH (08:01)
[2019-09-18] MEDS: LORATADINE 10 MG TAB PO SCH (08:54)
[2019-09-18] MEDS: PARoxetine 10 MG TAB PO SCH (08:55)
[2019-09-18 10:42] LABS: Basophils % (A) 0 %; Eosinophils # (A) 0.3 k/uL (0-0.7); Eosinophils % (A) 4 %; HCT 33.4 % (34.0-46.0); HGB 11.4 gm/dL (11.4-16.0); Lymphocytes # (A) 1.9 k/uL (1.0-4.8); Lymphocytes % (A) 28 %; MCHC 34.2 g/dL (31.0-37.0); MCV 93.6 fL (80.0-100.0); Mean Platelet Volume 8.1; Monocytes # (A) 0.5 k/uL (0-1.0); Monocytes % (A) 7 %; Neutrophils % (A) 60 %; Platelet Count 260 k/uL (150-450); RBC 3.56 m/uL (3.80-5.40); RDW 12.5 % (11.5-15.5); WBC 6.7 k/uL (3.8-10.6)
--- NOTE | 2019-09-18 15:48 | PN ---
PROGRESS NOTE DATE OF SERVICE: 09/18/2019 The patient is a 54-year-old pleasant white female admitted to hospital with acute lower abdominal pain followed by bloody diarrhea. She is doing much better today. Abdominal pain has almost resolved. She had no bowel movements for the last 12 hours. No fever, chills or night sweats. PHYSICAL EXAMINATION: She appears comfortable. No apparent distress. Vital signs are stable. Blood pressure 108/52, pulse rate 62, temperature 98.7. HEENT examination unremarkable. Conjunctivae are pink, sclerae anicteric. Oral cavity no lesions. Neck no JVD or lymph node enlargement. Chest was clear auscultation. HEART: Regular rate and rhythm. Abdomen is soft, bowel sounds are positive, no organomegaly. Extremities no pedal edema. Skin no rashes. NEUROLOGIC: Alert and oriented x3. No focal deficits. LABS: WBC 6.7, hemoglobin 11.4, platelets normal. Basic metabolic panel is within normal limits. IMPRESSION: Acute lower abdominal pain followed by bloody diarrhea of one day duration. Her CT scan showed left-sided colitis. Symptoms are suggestive of acute ischemic colitis. She had a similar episode about 3 years ago. She is doing well and symptoms resolved, mild pain. The bleeding stopped. Hemoglobin 11.4 g/dL. RECOMMENDATIONS: 1. Advance to a regular diet. 2. She can be discharged home today with outpatient followup in 2-3 weeks. 3. Continue antibiotics. Thank you for this consultation. MINGO / BERNARDINO: [id number] /
--- NOTE | 2019-09-19 12:20 | P.DS ---
Providers Date of admission: 09/16/19 13:37 Expected date of discharge: 09/18/19 Attending physician: Marek Bethea Consults: 09/16/19 13:04 Consult Physician Stat Consulting Provider: Susan Lim Consult Reason/Comments: GI bleed, colitis Do you want consulting provider notified?: Yes Primary care physician: Anival Ponce [facility] Course: final diagnosis acute bloody diarrhea, possible colitis, possibly ischemic or possibly infectious History of possible ischemic colitis previously History of GERD History of ovarian cyst next line history of hysterectomy History of attention deficit hyperactivity disorder, attention deficit disorder history of nicotine dependence Mild protein calorie malnutrition, with a body mass index of 19.9 Full code Discharge disposition Patient is being discharged in a stable condition with guarded prognosis to home. Patient will follow-up with Dr. Ponce upon discharge. patient will continue on a short course of oral antibiotics in the form of Ceftin 500 mg twice daily for the next 3 days along with Flagyl 500 mg 3 times daily for the next 3 days to complete the course. Total time taken is 35 minutes. History of present illness This is an 54-year-old female who was recently admitted with abdominal discomfort with possible colitis and was being closely monitored. patient was having a few episodes of bloody diarrhea. patient was initiated on IV antibiotics and evaluated by GI recommending continued IV antibiotics and we'll transition to oral antibiotics upon discharge. Patient will continue with oral Ceftin along with Flagyl for the next 3 days to complete the course. Patient is tolerating diet and instructed to continue to advance slowly as tolerated. Patient states she feels much better and would like to to go home today. hemoglobin is stable at 11.4 with no active bleeding noted. Currently no reports of chest pain, shortness of breath, or palpitations. Patient is afebrile. No reports of nausea or vomiting and patient is tolerating diet. On exam vital signs are stable. Temp is 98.7F, pulse is 62, respirations are 18, blood pressure is 108/52, oxygen saturation is 97% on room air. Cardio S1, S2 are muffled. Respiratory shows diminished breath sounds at the bases with no wheezing or rhonchi noted. Abdomen is soft and nontender. Nervous system shows no focal deficits. Please refer to medication reconciliation sheet for a list of medications. Patient Condition at Discharge: Good Plan - Discharge Summary Discharge Rx Participant: Yes New Discharge Prescriptions: New Cefuroxime Axetil [Ceftin] 500 mg PO BID 3 Days #6 tab metroNIDAZOLE [Flagyl] 500 mg PO TID 3 Days #9 tab Continue PARoxetine HCL [Paxil Cr] 12.5 mg PO QAM Cetirizine HCl [Zyrtec] 10 mg PO DAILY Pantoprazole Sodium [Protonix] 40 mg PO BID Olopatadine HCl [Pataday] 1 drop BOTH EYES DAILY Discharge Medication List PARoxetine HCL [Paxil Cr] 12.5 mg PO QAM 08/02/14 [History] Cetirizine HCl [Zyrtec] 10 mg PO DAILY 09/16/19 [History] Olopatadine HCl [Pataday] 1 drop BOTH EYES DAILY 09/16/19 [History] Pantoprazole Sodium [Protonix] 40 mg PO BID 09/16/19 [History] Cefuroxime Axetil [Ceftin] 500 mg PO BID 3 Days #6 tab 09/18/19 [Rx] metroNIDAZOLE [Flagyl] 500 mg PO TID 3 Days #9 tab 09/18/19 [Rx] Follow up Appointment(s)/Referral(s): Anival Ponce MD [Primary Care Provider] - 3 Days Susan Lim MD [STAFF PHYSICIAN] - 2 Weeks (call for follow up in 2-3 weeks) Patient Instructions/Handouts: Gastrointestinal Bleeding (ED) Activity/Diet/Wound Care/Special Instructions: Activity Limited until follow-up Continue with antibiotics for the next three days until finished Continue current diet and advance slowly as tolerated Follow-up with primary care provider upon discharge ( call with any concerns ) Follow-up with GI in the outpatient setting as discussed Continue monitoring stools and notify primary care provider or return to the ER if active bleeding is noted Encourage fluids and rest Good Hand washing for all in the house. Discharge Disposition: HOME SELF-CARE
== END 2019-09-18 14:42 | disposition home or self-care (01) ==
LOC: EC 09:57 → 1SOBS 13:37 → 6PED 14:00
PROVIDERS: ADMIT Hospitalist; ATTEND Hospitalist
DX: K52.9 Noninfective gastroenteritis and colitis, unspecified (principal); K92.1 Melena; R42 Dizziness and giddiness; K21.9 Gastro-esophageal reflux disease without esophagitis; F90.9 Attention-deficit hyperactivity disorder, unspecified type; E44.1 Mild protein-calorie malnutrition; K57.91 Diverticulosis of intestine, part unspecified, without perforation or abscess with bleeding; N32.89 Other specified disorders of bladder; K44.9 Diaphragmatic hernia without obstruction or gangrene; I10 Essential (primary) hypertension; F41.9 Anxiety disorder, unspecified; F32.9 Major depressive disorder, single episode, unspecified; Z87.891 Personal history of nicotine dependence; Z68.1 Body mass index [BMI] 19.9 or less, adult; Z03.818 Encounter for observation for suspected exposure to other biological agents ruled out; Z87.19 Personal history of other diseases of the digestive system; Z87.42 Personal history of other diseases of the female genital tract; Z90.710 Acquired absence of both cervix and uterus; Z79.899 Other long term (current) drug therapy; Z88.1 Allergy status to other antibiotic agents; Z98.890 Other specified postprocedural states; Z87.898 Personal history of other specified conditions; Z80.0 Family history of malignant neoplasm of digestive organs; Z80.41 Family history of malignant neoplasm of ovary; Z80.3 Family history of malignant neoplasm of breast; Z80.6 Family history of leukemia
CPT/HCPCS: 96366 ×3; 96361; 96365; 96375; 99285; 36415; 80053; 82150; 83605; 83690; 85025 ×2; 85610; 85730; 82272; 81001; 87040; 87045; 87046; 74177; G0378 ×3; U0003; J2543 ×3; J2405; J2270; C9113; Q9967

== ENCOUNTER → 2019-12-13 | Outpatient (CLI) | payer BC ==
--- NOTE | 2019-12-13 12:22 | MM ---
Reason for exam: screening (asymptomatic). Last mammogram was performed 3 years and 9 months ago. History: Patient is postmenopausal. Family history of premenopausal breast cancer in maternal aunt at age 30 and premenopausal breast cancer in maternal cousin at age 20. Took hormonal contraceptives for 5 years. Physical Findings: A clinical breast exam by your physician is recommended on an annual basis and results should be correlated with mammographic findings. MG 3D Screening Mammo W/Cad Bilateral CC and MLO view(s) were taken. Prior study comparison: March 05, 2016, bilateral MG 3d screening mammo w/cad. August 16, 2013, mammogram, performed at [facility]. The breast tissue is extremely dense which could obscure a lesion on mammography. There is no discrete abnormality. ASSESSMENT: Negative, BI-RAD 1 RECOMMENDATION: Routine screening mammogram of both breasts in 1 year.
== END | disposition home or self-care (01) ==
LOC: RADMAMWWP 06:55
PROVIDERS: ATTEND Family Medicine
DX: Z12.31 Encounter for screening mammogram for malignant neoplasm of breast (principal)
CPT/HCPCS: 77063; 77067

== ENCOUNTER → 2020-01-03 | Outpatient (CLI) | payer BC ==
--- NOTE | 2020-01-04 07:52 | CT ---
EXAMINATION TYPE: CT abdomen pelvis w con DATE OF EXAM: 01/03/2020 COMPARISON: 09/16/2019 HISTORY: LLQ pain. diarrhea x7 days CT DLP: 352.6 mGycm CONTRAST: CT scan of the abdomen and pelvis is performed with Oral Contrast and with IV Contrast, patient injec glenn with 100 mL of Isovue 300. FINDINGS: LUNG BASES-: No visible nodule. No infiltrate. LIVER/GB: No calcified gallstones. No space occupying hepatic lesion. Biliary tree is of normal ca liber. PANCREAS: No inflammation. No distinct mass. SPLEEN: No splenic enlargement. No lesion seen. ADRENALS: No nodule. No thickening. KIDNEYS/BLADDER: No hydronephrosis. No nephrolithiasis. No distinct renal mass. Urinary bladder g rossly unremarkable. BOWEL: Normal appendix. There is diffuse colonic wall thickening noted which could be on the basis of underlying colitis versus inflammatory bowel disease. Correlate clinically. Small bowel is of normal caliber. Small hiatal hernia redemonstrated. GENITAL ORGANS: No gross abnormality. LYMPH NODES: No greater than 1cm abdominal or pelvic lymph nodes are appreciated. AORTA: No significant abnormality. OSSEOUS STRUCTURES: No significant abnormality is seen. OTHER: No significant additional abnormality is seen. IMPRESSION: 1. There is diffuse colonic wall thickening noted which could be on the basis of underlying colitis v ersus inflammatory bowel disease. Correlate clinically.
== END | disposition home or self-care (01) ==
LOC: RADCTMAIN 17:22
PROVIDERS: ATTEND Family Medicine
DX: R93.3 Abnormal findings on diagnostic imaging of other parts of digestive tract (principal); R10.32 Left lower quadrant pain
CPT/HCPCS: 74177; Q9967

== ENCOUNTER 2020-01-04 14:45 | Inpatient (IN) | payer BC ==
[2020-01-04] MEDS ORDERED: SODIUM CHLORIDE 0.9% 1,000 ML IV STA (15:20)
[2020-01-04] MEDS ORDERED: SODIUM CHLORIDE 0.9% 500 ML 500 ML IV STA (15:20)
--- NOTE | 2020-01-04 15:43 | XR ---
KUB HISTORY: Abdominal pain, nausea vomiting diarrhea Frontal KUB submitted and correlated to CT scan 01/03/2020 Contrast material present throughout the distribution of the colon. Lung bases are clear. There is no pneumoperitoneum or bowel obstruction. Right hip shows questionable change of femoral acetabular imp ingement. IMPRESSION: Nonobstructive bowel gas pattern.
[2020-01-04 17:11] LABS: Basophils # (A) 0.1 k/uL (0-0.2); Basophils % (A) 1 %; Eosinophils # (A) 0.4 k/uL (0-0.7); Eosinophils % (A) 3 %; HCT 37.6 % (34.0-46.0); HGB 12.8 gm/dL (11.4-16.0); Lymphocytes # (A) 2.3 k/uL (1.0-4.8); Lymphocytes % (A) 21 %; MCH 31.4 pg (25.0-35.0); MCHC 34.1 g/dL (31.0-37.0); MCV 92.2 fL (80.0-100.0); Mean Platelet Volume 7.5; Monocytes # (A) 0.5 k/uL (0-1.0); Monocytes % (A) 5 %; Neutrophils # (A) 7.4 k/uL (1.3-7.7); Neutrophils % (A) 69 %; Platelet Count 311 k/uL (150-450); RBC 4.08 m/uL (3.80-5.40); RDW 11.9 % (11.5-15.5); WBC 10.7 k/uL (3.8-10.6)
[2020-01-04 17:20] LABS: ALT 9 U/L (4-34); AST 18 U/L (14-36); African American GFR (CKD) >90 (>60 ml/min/1.73 sqM); Albumin 4.3 g/dL (3.5-5.0); Alkaline Phosphatase 79 U/L (38-126); Anion Gap 6 mmol/L; Blood Urea Nitrogen 12 mg/dL (7-17); Calcium 9.6 mg/dL (8.4-10.2); Carbon Dioxide 30 mmol/L (22-30); Chloride 102 mmol/L (98-107); Glucose 81 mg/dL (74-99); Lipase 61 U/L (23-300); Non-African American GFR(CKD) >90 (>60 ml/min/1.73 sqM); Sodium 138 mmol/L (137-145); Total Bilirubin 0.4 mg/dL (0.2-1.3); Total Protein 7.3 g/dL (6.3-8.2)
[2020-01-04] MEDS ORDERED: HYDROmorphone 1 MG/ML 1 ML SYRINGE IVP PRN (17:33)
[2020-01-04] MEDS ORDERED: ACETAMINOPHEN TAB 325 MG TAB PO PRN (17:33)
[2020-01-04] MEDS ORDERED: ONDANSETRON 4 MG/2 ML VIAL IVP PRN (17:33)
[2020-01-04] MEDS ORDERED: NALOXONE 0.4 MG/ML 1 ML VIAL IV PRN (17:33)
--- NOTE | 2020-01-04 17:33 | ED ---
Nausea/Vomiting/Diarrhea HPI - General Chief complaint: Nausea/Vomiting/Diarrhea Stated complaint: abd pain Time Seen by Provider: 01/04/20 15:20 Source: patient, RN notes reviewed Mode of arrival: ambulatory Limitations: no limitations - History of Present Illness Initial comments: this is a 54-year-old female who was sent in from her doctor's after having experienced nausea and abdominal pain diarrhea. She was found have colitis on imaging/outpatient testing. This has been going on for 8 days she is unable to keep fluids down she's had a 9 pound weight loss. In addition she has had vomiting. No gross blood at this time however. MD complaint: nausea, diarrhea, abdominal pain - Related Data Home Medications Medication Instructions Recorded Confirmed PARoxetine HCL [Paxil Cr] 12.5 mg PO DAILY 08/02/14 01/04/20 Cetirizine HCl [Zyrtec] 10 mg PO AC-SUPPER 09/16/19 01/04/20 Olopatadine HCl [Pataday] 1 drop BOTH EYES DAILY 09/16/19 01/04/20 Pantoprazole Sodium [Protonix] 40 mg PO AC-BID 09/16/19 01/04/20 Calcium/Iron(Unknown) 1 tab PO DAILY 01/04/20 01/04/20 Allergies Allergy/AdvReac Type Severity Reaction Status Date / Time Tetracyclines AdvReac Severe Dizzy Verified 01/04/20 17:22 Review of Systems ROS Statement: Those systems with pertinent positive or pertinent negative responses have been documented in the HPI. ROS Other: All systems not noted in ROS Statement are negative. Past Medical History Past Medical History: GERD/Reflux Additional Past Medical History / Comment(s): COLITIS. Hx left ovarian cyst, diverticula History of Any Multi-Drug Resistant Organisms: None Reported Past Surgical History: Hysterectomy Additional Past Surgical History / Comment(s): hemmroidectomy, bunion surgery, Past Anesthesia/Blood Transfusion Reactions: Motion Sickness Additional Past Anesthesia/Blood Transfusion Reaction / Comment(s): mild Past Psychological History: ADD/ADHD Smoking Status: Current every day smoker Past Alcohol Use History: Rare Past Drug Use History: None Reported - Past Family History Mother Additional Family Medical History / Comment(s): colon cancer ovarian and breast Father Additional Family Medical History / Comment(s): lukemia General Exam - General Exam Comments Initial Comments: this a well-developed asthenic appearing female who is awake alert oriented 3 Limitations: no limitations General appearance: alert, anxious Head exam: Present: atraumatic, normocephalic, normal inspection Eye exam: Present: normal appearance, PERRL, EOMI. Absent: scleral icterus, conjunctival injection, periorbital swelling ENT exam: Present: mucous membranes dry Neck exam: Present: normal inspection. Absent: tenderness, meningismus, lymphadenopathy Respiratory exam: Present: normal lung sounds bilaterally. Absent: respiratory distress, wheezes, rales, rhonchi, stridor Cardiovascular Exam: Present: regular rate, normal rhythm, normal heart sounds. Absent: systolic murmur, diastolic murmur, rubs, gallop, clicks GI/Abdominal exam: Present: soft, normal bowel sounds. Absent: distended, tenderness, guarding, rebound, rigid Extremities exam: Present: normal inspection, full ROM, normal capillary refill. Absent: tenderness, pedal edema, joint swelling, calf tenderness Back exam: Present: normal inspection Neurological exam: Present: alert, oriented X3, CN II-XII intact Psychiatric exam: Present: normal affect, normal mood Skin exam: Present: warm, dry, intact, normal color. Absent: rash Course Vital Signs 01/04/20 14:50 Temperature 98.8 F Pulse Rate 93 Respiratory 17 Rate Blood Pressure 151/84 O2 Sat by Pulse 96 Oximetry Medical Decision Making - Medical Decision Making I did discuss the findings with the patient as well as Dr. Ponce's office the patient will be admitted with GI consultation - Lab Data Result diagrams: 01/04/20 16:59 01/04/20 16:59 Lab Results 01/04/20 01/04/20 Range/Units 16:59 16:59 WBC 10.7 H (3.8-10.6) k/uL RBC 4.08 (3.80-5.40) m/uL Hgb 12.8 (11.4-16.0) gm/dL Hct 37.6 (34.0-46.0) % MCV 92.2 (80.0-100.0) fL MCH 31.4 (25.0-35.0) pg MCHC 34.1 (31.0-37.0) g/dL RDW 11.9 (11.5-15.5) % Plt Count 311 (150-450) k/uL MPV 7.5 Neutrophils % 69 % Lymphocytes % 21 % Monocytes % 5 % Eosinophils % 3 % Basophils % 1 % Neutrophils # 7.4 (1.3-7.7) k/uL Lymphocytes # 2.3 (1.0-4.8) k/uL Monocytes # 0.5 (0-1.0) k/uL Eosinophils # 0.4 (0-0.7) k/uL Basophils # 0.1 (0-0.2) k/uL Sodium 138 (137-145) mmol/L Potassium 4.0 (3.5-5.1) mmol/L Chloride 102 (98-107) mmol/L Carbon Dioxide 30 (22-30) mmol/L Anion Gap 6 mmol/L BUN 12 (7-17) mg/dL Creatinine 0.75 (0.52-1.04) mg/dL Est GFR (CKD-EPI)AfAm >90 (>60 ml/min/1.73 sqM) Est GFR (CKD-EPI)NonAf >90 (>60 ml/min/1.73 sqM) Glucose 81 (74-99) mg/dL Calcium 9.6 (8.4-10.2) mg/dL Total Bilirubin 0.4 (0.2-1.3) mg/dL AST 18 (14-36) U/L ALT 9 (4-34) U/L Alkaline Phosphatase 79 (38-126) U/L Total Protein 7.3 (6.3-8.2) g/dL Albumin 4.3 (3.5-5.0) g/dL Lipase 61 (23-300) U/L - Radiology Data Radiology results: report reviewed (I did review the imaging and report retained contrast noted otherwise nonspecific abdominal findings), image reviewed Disposition Clinical Impression: Acute colitis, Abdominal pain Disposition: ADMITTED IP TO THIS [facility] Condition: Fair Referrals: Anival Ponce MD [Primary Care Provider] - 1-2 days
[2020-01-04] MEDS ORDERED: metroNIDAZOLE-NS PMX 500 MG in SALINE 1 100ML.BAG IVPB STA (17:37)
[2020-01-04] MEDS ORDERED: LEVOFLOXACIN 500MG-D5W PMX 500 MG in DEXTROSE/WATER 1 100ML.BAG IVPB STA (17:37)
[2020-01-04] MEDS: SODIUM CHLORIDE 0.9% 1,000 ML IV SCH (18:33)
[2020-01-04] MEDS ORDERED: LORATADINE 10 MG TAB PO SCH (22:21)
[2020-01-05] MEDS: SODIUM CHLORIDE 0.9% 1,000 ML IV SCH ×3 (01:30→21:00)
[2020-01-05 06:19] LABS: Basophils % (A) 0 %; Eosinophils # (A) 0.2 k/uL (0-0.7); Eosinophils % (A) 3 %; HCT 31.8 % (34.0-46.0); HGB 10.6 gm/dL (11.4-16.0); Lymphocytes # (A) 2.2 k/uL (1.0-4.8); Lymphocytes % (A) 25 %; MCH 31.6 pg (25.0-35.0); MCHC 33.5 g/dL (31.0-37.0); MCV 94.6 fL (80.0-100.0); Mean Platelet Volume 7.9; Monocytes # (A) 0.6 k/uL (0-1.0); Monocytes % (A) 6 %; Neutrophils # (A) 5.6 k/uL (1.3-7.7); Neutrophils % (A) 64 %; Platelet Count 262 k/uL (150-450); RBC 3.36 m/uL (3.80-5.40); RDW 12.1 % (11.5-15.5); WBC 8.8 k/uL (3.8-10.6)
[2020-01-05 06:30] LABS: ALT 7 U/L (4-34); AST 14 U/L (14-36); African American GFR (CKD) >90 (>60 ml/min/1.73 sqM); Albumin 3.1 g/dL (3.5-5.0); Albumin/Globulin Ratio 1.3; Alkaline Phosphatase 60 U/L (38-126); Anion Gap 8 mmol/L; Blood Urea Nitrogen 13 mg/dL (7-17); C Reactive Protein 8.8 mg/L (<10.0); Calcium 8.4 mg/dL (8.4-10.2); Carbon Dioxide 21 mmol/L (22-30); Chloride 107 mmol/L (98-107); Globulin 2.3 g/dL; Magnesium 1.7 mg/dL (1.6-2.3); Non-African American GFR(CKD) >90 (>60 ml/min/1.73 sqM); Potassium 3.8 mmol/L (3.5-5.1); Sodium 136 mmol/L (137-145); Total Bilirubin 0.4 mg/dL (0.2-1.3); Total Protein 5.4 g/dL (6.3-8.2)
[2020-01-05 06:37] LABS: Glucose 47 mg/dL (74-99)
[2020-01-05] MEDS ORDERED: DEXTROSE 50% SYRINGE 50 ML IVP ONE (06:39)
[2020-01-05 06:47] LABS: Glucose,Whole Blood 53 mg/dL (75-99)
[2020-01-05 07:15] LABS: Glucose,Whole Blood 226 mg/dL (75-99)
[2020-01-05 07:16] LABS: Erythrocyte Sedimentation Rate 30 mm/hr (0-20)
--- NOTE | 2020-01-05 08:20 | P.HPIM ---
History of Present Illness H&P Date: 01/05/20 Chief Complaint: Abdominal pain 54-year-old female was sent to the emergency department for further workup outpatient diagnostic testing revealing inflammatory versus infectious colitis .patient had significant weight loss over the last 8 days of 9 pounds. Patient's chief complaint of abdominal pain with associated nausea, vomiting, and diarrhea. Patient has significant history of ulcerative colitis, ischemic colitis, diverticuli,GERD, and mild depression. Patient received IV hydration, and first doses of antibiotics for acute colitis in the emergency department. Patient had episodes of low blood sugar, during the night. patient was supplemented with dextrose for low blood sugar. patient placed on D5 0.975 ML's an houruntil blood sugars level are adequate. Consultation with GI for acute colitis. Review of Systems Constitutional: Reports fatigue, Reports weakness, Reports weight loss Gastrointestinal: Reports change in bowel habits, Reports diarrhea, Reports loss of appetite, Reports nausea, Reports vomiting Musculoskeletal: Reports muscle weakness Neurological: Reports vertigo, Reports weakness Endocrine: Reports low blood sugars, Reports weight change Past Medical History Past Medical History: GERD/Reflux Additional Past Medical History / Comment(s): COLITIS. Hx left ovarian cyst, diverticula History of Any Multi-Drug Resistant Organisms: None Reported Past Surgical History: Hysterectomy Additional Past Surgical History / Comment(s): hemmroidectomy, bunion surgery, Past Anesthesia/Blood Transfusion Reactions: Motion Sickness Additional Past Anesthesia/Blood Transfusion Reaction / Comment(s): mild Past Psychological History: ADD/ADHD Smoking Status: Current some day smoker Past Alcohol Use History: Rare Past Drug Use History: None Reported - Past Family History Mother Additional Family Medical History / Comment(s): colon cancer ovarian and breast Father Additional Family Medical History / Comment(s): lukemia Medications and Allergies Home Medications and Allergies Comment(s): Medications and ALLERGIES reviewed Home Medications Medication Instructions Recorded Confirmed Type PARoxetine HCL [Paxil Cr] 12.5 mg PO DAILY 08/02/14 01/04/20 History Cetirizine HCl [Zyrtec] 10 mg PO AC-SUPPER 09/16/19 01/04/20 History Olopatadine HCl [Pataday] 1 drop BOTH EYES DAILY 09/16/19 01/04/20 History Pantoprazole Sodium [Protonix] 40 mg PO AC-BID 09/16/19 01/04/20 History Calcium/Iron(Unknown) 1 tab PO DAILY 01/04/20 01/04/20 History Allergies Allergy/AdvReac Type Severity Reaction Status Date / Time Tetracyclines AdvReac Severe Dizzy Verified 01/04/20 17:22 Physical Exam Vitals: Vital Signs Temp Pulse Pulse Resp BP BP BP 01/05/20 05:51 98.1 F 77 16 88/52 91/58 01/04/20 19:41 98.8 F 78 16 01/04/20 14:50 98.8 F 93 17 151/84 BP BP Pulse Ox 01/05/20 05:51 93/58 98 01/04/20 19:41 102/59 100 01/04/20 14:50 96 Intake and Output 01/04/20 01/05/20 01/05/20 22:59 06:59 14:59 Intake Total 100 590 Balance 100 590 Intake: Oral 100 590 Other: # Voids 2 Weight 53.977 kg - Constitutional General appearance: mild distress, thin - EENT Eyes: EOMI, PERRLA Ears: bilateral: normal - Neck Carotids: bilateral: upstroke normal Thyroid: bilateral: normal size - Respiratory Respiratory: bilateral: CTA - Cardiovascular Heart sounds: normal: S1, S2 - Gastrointestinal General gastrointestinal: hyperactive bowel sounds, soft Localized gastrointestinal: tender: diffuse - Integumentary Integumentary: pale - Neurologic Neurologic: CNII-XII intact - Musculoskeletal Musculoskeletal: generalized weakness - Psychiatric Psychiatric: A&O x's 3, appropriate affect, intact judgment & insight Results CBC & Chem 7: 01/05/20 05:12 01/05/20 05:12 Labs: Abnormal Lab Results - Last 24 Hours (Table) 01/04/20 01/05/20 01/05/20 Range/Units 16:59 05:12 05:12 WBC 10.7 H (3.8-10.6) k/uL RBC 3.36 L (3.80-5.40) m/uL Hgb 10.6 L (11.4-16.0) gm/dL Hct 31.8 L (34.0-46.0) % ESR 30 H (0-20) mm/hr Sodium 136 L (137-145) mmol/L Carbon Dioxide 21 L (22-30) mmol/L Glucose 47 L* (74-99) mg/dL POC Glucose (mg/dL) (75-99) mg/dL Total Protein 5.4 L (6.3-8.2) g/dL Albumin 3.1 L (3.5-5.0) g/dL 01/05/20 01/05/20 Range/Units 06:44 07:14 WBC (3.8-10.6) k/uL RBC (3.80-5.40) m/uL Hgb (11.4-16.0) gm/dL Hct (34.0-46.0) % ESR (0-20) mm/hr Sodium (137-145) mmol/L Carbon Dioxide (22-30) mmol/L Glucose (74-99) mg/dL POC Glucose (mg/dL) 53 L 226 H (75-99) mg/dL Total Protein (6.3-8.2) g/dL Albumin (3.5-5.0) g/dL Abdominal x-ray: report reviewed Thrombosis Risk Factor Assmnt - Choose All That Apply Any of the Below Risk Factors Present?: No Each Factor Represents 1 point: Age 41-60 years Other Risk Factors: No Other congenital or acquired thrombophilia - If yes, enter type in comment: No Thrombosis Risk Factor Assessment Total Risk Factor Score: 1 Thrombosis Risk Factor Assessment Level: Very Low Risk Assessment and Plan Assessment: Acute colitisawaiting recommendations from GI Ulcerative colitisawaiting recommendations from GI GERD Anxiety and depression History of ovarian cyst History of diverticulitis ADHD Smoker (1) Abdominal pain Current Visit: Yes Status: Acute Code(s): R10.9 - UNSPECIFIED ABDOMINAL PAIN SNOMED Code(s): 74088747 (2) Acute colitis Current Visit: Yes Status: Acute Code(s): K52.9 - NONINFECTIVE GASTROENTERITIS AND COLITIS, UNSPECIFIED SNOMED Code(s): 71573577 Plan: Acute colitiscontinue antibiotic therapyawaiting recommendations from GI Ulcerative colitis awaiting recommendations from GI Hypoglycemic event the fluid switch to D5 0.9 at 75 ML's an hour until stabilized blood sugars Continue medical management Time with Patient: Greater than 30
[2020-01-05] MEDS: metroNIDAZOLE-NS PMX 500 MG in SALINE 1 100ML.BAG IVPB SCH ×3 (08:31→23:50)
[2020-01-05] MEDS: PARoxetine 10 MG TAB PO SCH (08:31)
[2020-01-05] MEDS: PANTOPRAZOLE 40 MG/10 ML VIAL IV SCH (08:31)
[2020-01-05] MEDS: KETOTIFEN 0.025% OPHTH DROPS 5 ML BTL BOTH EYES SCH ×2 (08:31→21:02)
[2020-01-05] MEDS: CALCIUM PO SCH (08:37)
[2020-01-05] MEDS: IRON PO SCH (08:37)
[2020-01-05] MEDS: DEXTROSE 5%-0.9% NACL 1,000 ML IV SCH ×2 (08:44→10:55)
[2020-01-05 11:08] LABS: Appearance,Urine Clear (Clear); Bacteria,Urine Rare /hpf; Bilirubin,Urine Negative (Negative); Blood,Urine Small (Negative); Color,Urine Light Yellow; Glucose,Urine (UA) 2+ (Negative); Leukocyte Esterase,Urine Small (Negative); Mucus,Urine Rare /hpf; Nitrite,Urine Negative (Negative); PH, Urine 5.5 (5.0-8.0); Protein,Urine Negative (Negative); RBC,Urine 2 /hpf (0-5); Specific Gravity,Urine 1.017 (1.001-1.035); Squamous Epithelial Cell,Urine 2 /hpf (0-4); Urobilinogen,Urine <2.0 mg/dL (<2.0); WBC,Urine 2 /hpf (0-5)
[2020-01-05 11:33] LABS: Ketones,Urine 4+ (Negative)
[2020-01-05 12:25] LABS: Glucose,Whole Blood 110 mg/dL (75-99)
[2020-01-05 17:24] LABS: Glucose,Whole Blood 78 mg/dL (75-99)
[2020-01-05] MEDS ORDERED: LORATADINE 10 MG TAB PO SCH ×2 (17:30→21:00)
[2020-01-05] MEDS ORDERED: LEVOFLOXACIN 500MG-D5W PMX 500 MG in DEXTROSE/WATER 1 100ML.BAG IVPB SCH (21:00)
[2020-01-05 21:14] LABS: Glucose,Whole Blood 135 mg/dL (75-99)
[2020-01-06] MEDS: SODIUM CHLORIDE 0.9% 1,000 ML IV SCH (00:01)
[2020-01-06 04:23] LABS: Glucose,Whole Blood 95 mg/dL (75-99)
[2020-01-06 06:37] LABS: Basophils % (A) 1 %; Eosinophils # (A) 0.3 k/uL (0-0.7); Eosinophils % (A) 4 %; HCT 29.7 % (34.0-46.0); HGB 10.3 gm/dL (11.4-16.0); Lymphocytes # (A) 1.7 k/uL (1.0-4.8); Lymphocytes % (A) 23 %; MCH 31.9 pg (25.0-35.0); MCHC 34.6 g/dL (31.0-37.0); Monocytes # (A) 0.5 k/uL (0-1.0); Monocytes % (A) 6 %; Neutrophils % (A) 65 %; Platelet Count 249 k/uL (150-450); RBC 3.23 m/uL (3.80-5.40); RDW 11.9 % (11.5-15.5); WBC 7.6 k/uL (3.8-10.6)
[2020-01-06 06:52] LABS: ALT 7 U/L (4-34); AST 13 U/L (14-36); African American GFR (CKD) >90 (>60 ml/min/1.73 sqM); Albumin 2.8 g/dL (3.5-5.0); Alkaline Phosphatase 52 U/L (38-126); Anion Gap 3 mmol/L; Blood Urea Nitrogen 5 mg/dL (7-17); Calcium 8.4 mg/dL (8.4-10.2); Carbon Dioxide 27 mmol/L (22-30); Chloride 109 mmol/L (98-107); Glucose 88 mg/dL (74-99); Non-African American GFR(CKD) >90 (>60 ml/min/1.73 sqM); Potassium 3.4 mmol/L (3.5-5.1); Sodium 139 mmol/L (137-145); Total Bilirubin 0.3 mg/dL (0.2-1.3); Total Protein 5.1 g/dL (6.3-8.2)
--- NOTE | 2020-01-06 07:06 | P.CONS ---
History of Present Illness - Reason for Consult Consult date: 01/05/20 colitis Requesting physician: Anival Ponce - Chief Complaint Diarrhea - History of Present Illness 54-year-old female with a medical history significant for GERD, diverticulosis and prior treatment for ischemic colitiswho presented to the hospital due to diarrhea. The patient reports 8 days of frequent loose bowel movements. She denies any blood per rectum. She reports that the symptoms started after eating undercooked meat. She denies any fevers or chills. She denies any sick contacts. She has previously had multiple colonoscopies and believes her last was in 2014 at which time the colon was described as tortuous. She had a computed tomography scan in the outpatient setting on 01/04/2020 significant for diffuse colitis. Her labs are significant for a WBC 8.8, hemoglobin 10.6, platelet count 262,000. She has been started on IV antibiotic therapy and reports that bowel movements are much improved. 54-year-old female was sent to the emergency department for further workup outpatient diagnostic testing revealing inflammatory versus infectious colitis .patient had significant weight loss over the last 8 days of 9 pounds. Patient's chief complaint of abdominal pain with associated nausea, vomiting, and diarrhea. Patient has significant history of ulcerative colitis, ischemic colitis, diverticuli,GERD, and mild depression. Patient received IV hydration, and first doses of antibiotics for acute colitis in the emergency department. Patient had episodes of low blood sugar, during the night. patient was supplemented with dextrose for low blood sugar. patient placed on D5 0.975 ML's an houruntil blood sugars level are adequate. Consultation with GI for acute colitis. Review of Systems REVIEW OF SYSTEMS: CONSTITUTIONAL: Denies any fevers, chills, weight change or fatigue. CARDIOVASCULAR: Denies any chest pain, palpitations high or low blood pressures RESPIRATORY: Denies any shortness of breath, hemoptysis or cough. GENITOURINARY: No dysuria or hematuria. MUSCULOSKELETAL: No weakness reported. SKIN: Denies any new rashes or lesions, jaundice or pallor. PSYCHIATRIC: Denies any depression or anxiety. NEUROLOGY: Denies headache, denies any new focal deficits. EARS/NOSE/THROAT: No recent hearing change, congestion, nasal discharge or sore throat. EYES: No pain in eyes, discharge or change in vision. GASTROINTESTINAL: As per HPI. Past Medical History Past Medical History: GERD/Reflux Additional Past Medical History / Comment(s): COLITIS. Hx left ovarian cyst, diverticula History of Any Multi-Drug Resistant Organisms: None Reported Past Surgical History: Hysterectomy Additional Past Surgical History / Comment(s): hemmroidectomy, bunion surgery, Past Anesthesia/Blood Transfusion Reactions: Motion Sickness Additional Past Anesthesia/Blood Transfusion Reaction / Comm: mild Past Psychological History: ADD/ADHD Smoking Status: Current some day smoker Past Alcohol Use History: Rare Past Drug Use History: None Reported - Past Family History Mother Additional Family Medical History / Comment(s): colon cancer ovarian and breast Father Additional Family Medical History / Comment(s): lukemia Medications and Allergies Home Medications Medication Instructions Recorded Confirmed Type PARoxetine HCL [Paxil Cr] 12.5 mg PO DAILY 08/02/14 01/04/20 History Cetirizine HCl [Zyrtec] 10 mg PO AC-SUPPER 09/16/19 01/04/20 History Olopatadine HCl [Pataday] 1 drop BOTH EYES DAILY 09/16/19 01/04/20 History Pantoprazole Sodium [Protonix] 40 mg PO AC-BID 09/16/19 01/04/20 History Calcium/Iron(Unknown) 1 tab PO DAILY 01/04/20 01/04/20 History Allergies Allergy/AdvReac Type Severity Reaction Status Date / Time Tetracyclines AdvReac Severe Dizzy Verified 01/04/20 17:22 Physical Exam Vitals: Vital Signs Temp Pulse Pulse Pulse Resp BP BP 01/05/20 11:17 97.1 F L 71 18 01/05/20 05:51 98.1 F 77 16 88/52 01/04/20 19:41 98.8 F 78 16 01/04/20 14:50 98.8 F 93 17 151/84 BP BP BP BP Pulse Ox 01/05/20 11:17 101/50 97 01/05/20 05:51 91/58 93/58 98 01/04/20 19:41 102/59 100 01/04/20 14:50 96 Intake and Output 01/04/20 01/05/20 01/05/20 22:59 06:59 14:59 Intake Total 100 590 590 Balance 100 590 590 Intake: Oral 100 590 590 Other: # Voids 2 Weight 53.977 kg On physical examination, patient appears comfortable in no apparent distress. HEAD: Normocephalic, atraumatic. EYES: No scleral icterus. No conjunctival injection. MOUTH: No lesions, tongue midline. NECK: Trachea midline, no gross abnormalities. CHEST: Clear to auscultation with no wheezing or rhonchi appreciated. HEART: Regular rate and rhythm. ABDOMEN: Soft, nontender to palpation. Bowel sounds are positive. No organomegaly. No guarding or rigidity. EXTREMITIES: No pedal edema. SKIN: No rashes, no jaundice. NEUROLOGIC: Alert and oriented x3. No focal deficits. Results CBC & Chem 7: 01/06/20 06:18 01/06/20 06:18 Labs: Abnormal Lab Results - Last 24 Hours (Table) 01/04/20 01/05/20 01/05/20 Range/Units 16:59 05:12 05:12 WBC 10.7 H (3.8-10.6) k/uL RBC 3.36 L (3.80-5.40) m/uL Hgb 10.6 L (11.4-16.0) gm/dL Hct 31.8 L (34.0-46.0) % ESR 30 H (0-20) mm/hr Sodium 136 L (137-145) mmol/L Carbon Dioxide 21 L (22-30) mmol/L Glucose 47 L* (74-99) mg/dL POC Glucose (mg/dL) (75-99) mg/dL Total Protein 5.4 L (6.3-8.2) g/dL Albumin 3.1 L (3.5-5.0) g/dL Urine Glucose (UA) (Negative) Urine Ketones (Negative) Urine Blood (Negative) Ur Leukocyte Esterase (Negative) Urine Bacteria (None) /hpf Urine Mucus (None) /hpf 01/05/20 01/05/20 01/05/20 Range/Units 06:44 07:14 09:00 WBC (3.8-10.6) k/uL RBC (3.80-5.40) m/uL Hgb (11.4-16.0) gm/dL Hct (34.0-46.0) % ESR (0-20) mm/hr Sodium (137-145) mmol/L Carbon Dioxide (22-30) mmol/L Glucose (74-99) mg/dL POC Glucose (mg/dL) 53 L 226 H (75-99) mg/dL Total Protein (6.3-8.2) g/dL Albumin (3.5-5.0) g/dL Urine Glucose (UA) 2+ H (Negative) Urine Ketones 4+ H (Negative) Urine Blood Small H (Negative) Ur Leukocyte Esterase Small H (Negative) Urine Bacteria Rare H (None) /hpf Urine Mucus Rare H (None) /hpf 01/05/20 Range/Units 12:24 WBC (3.8-10.6) k/uL RBC (3.80-5.40) m/uL Hgb (11.4-16.0) gm/dL Hct (34.0-46.0) % ESR (0-20) mm/hr Sodium (137-145) mmol/L Carbon Dioxide (22-30) mmol/L Glucose (74-99) mg/dL POC Glucose (mg/dL) 110 H (75-99) mg/dL Total Protein (6.3-8.2) g/dL Albumin (3.5-5.0) g/dL Urine Glucose (UA) (Negative) Urine Ketones (Negative) Urine Blood (Negative) Ur Leukocyte Esterase (Negative) Urine Bacteria (None) /hpf Urine Mucus (None) /hpf CT scan - abdomen: report reviewed (computed tomography scan of the abdomen consistent with colitis) Assessment and Plan (1) Colitis Narrative/Plan: 54-year-old female with a medical history significant for GERD, diverticulosis, hospitalization earlier this year for ischemic colitis who presented to the hospital due to diarrhea. Computed tomography scan an outpatient setting was consistent with colitis. Unclear etiology suspicion is for infectious colitis, less likely inflammatory or ischemic in nature. Currently improved on antibiotic therapy. Testing for Clostridium difficile is pending. Current Visit: No Status: Acute Code(s): K52.9 - NONINFECTIVE GASTROENTERITIS AND COLITIS, UNSPECIFIED SNOMED Code(s): 38253426 (2) Diarrhea Current Visit: Yes Status: Acute Code(s): R19.7 - DIARRHEA, UNSPECIFIED SNOMED Code(s): 48681482 Plan: supportive care Okay for liquid diet, advance to low fiber low lactose as tolerated Continue to monitor CBC, BMP, LFTs Continue to monitor stool output, patient reporting no bowel movements since admission Continue broad-spectrum antibiotic therapy recommendation is for colonoscopy in 4 to 6 weeks after discharge if patient continues to improve clinically Thank you for allowing us to participate in the care of the patient
[2020-01-06] MEDS ORDERED: Potassium Replacement Protocol 1 EACH MISC MISCELLANE PRN (07:40)
--- NOTE | 2020-01-06 07:40 | P.PN ---
Subjective Progress Note Date: 01/06/20 Principal diagnosis: Acute colitis 54-year-old female was admitted to the hospital for diffuse abdominal pain with associated nausea vomiting diarrhea for duration of 8 days. Outpatient diagnostic testing revealed infectious versus inflammatory colitis .patient was sent to the emergency department for further diagnostic workup and admission to the hospital for acute colitis. She received broad-spectrum antibiotics for acute colitis. Patient tolerating full liquid diet advancing to a low fiber lactose-free diet. Patient denies any complaints at this time Objective - Vital Signs Vital signs: Vital Signs Temp 97 F L 01/06/20 04:00 Pulse 75 01/06/20 04:00 Resp 16 01/06/20 04:00 BP 86/47 01/06/20 04:00 Pulse Ox 98 01/06/20 04:00 Intake & Output 01/05/20 01/06/20 01/06/20 18:59 06:59 18:59 Intake Total 890 Balance 890 Intake: Oral 890 Other: # Voids 1 1 - Constitutional General appearance: Present: thin - EENT Eyes: Present: EOMI, PERRLA Ears: bilateral: normal - Neck Neck: Present: normal ROM Carotids: bilateral: upstroke normal Thyroid: bilateral: normal size - Respiratory Respiratory: bilateral: CTA - Cardiovascular Heart sounds: normal: S1, S2 - Gastrointestinal Gastrointestinal Comment(s): No tenderness noted General gastrointestinal: Present: normal bowel sounds - Integumentary Integumentary: Present: normal turgor - Neurologic Neurologic: Present: CNII-XII intact - Musculoskeletal Musculoskeletal: Present: gait normal - Psychiatric Psychiatric: Present: A&O x's 3, appropriate affect, intact judgment & insight - Allied health notes Allied health notes reviewed: nursing - Labs CBC & Chem 7: 01/06/20 06:18 01/06/20 06:18 Labs: Abnormal Lab Results - Last 24 Hours (Table) 01/05/20 01/05/20 01/05/20 Range/Units 09:00 12:24 21:12 RBC (3.80-5.40) m/uL Hgb (11.4-16.0) gm/dL Hct (34.0-46.0) % Potassium (3.5-5.1) mmol/L Chloride (98-107) mmol/L BUN (7-17) mg/dL Creatinine (0.52-1.04) mg/dL POC Glucose (mg/dL) 110 H 135 H (75-99) mg/dL AST (14-36) U/L Total Protein (6.3-8.2) g/dL Albumin (3.5-5.0) g/dL Urine Glucose (UA) 2+ H (Negative) Urine Ketones 4+ H (Negative) Urine Blood Small H (Negative) Ur Leukocyte Esterase Small H (Negative) Urine Bacteria Rare H (None) /hpf Urine Mucus Rare H (None) /hpf 01/06/20 01/06/20 Range/Units 06:18 06:18 RBC 3.23 L (3.80-5.40) m/uL Hgb 10.3 L (11.4-16.0) gm/dL Hct 29.7 L (34.0-46.0) % Potassium 3.4 L (3.5-5.1) mmol/L Chloride 109 H (98-107) mmol/L BUN 5 L (7-17) mg/dL Creatinine 0.51 L (0.52-1.04) mg/dL POC Glucose (mg/dL) (75-99) mg/dL AST 13 L (14-36) U/L Total Protein 5.1 L (6.3-8.2) g/dL Albumin 2.8 L (3.5-5.0) g/dL Urine Glucose (UA) (Negative) Urine Ketones (Negative) Urine Blood (Negative) Ur Leukocyte Esterase (Negative) Urine Bacteria (None) /hpf Urine Mucus (None) /hpf Microbiology - Last 24 Hours (Table) 01/04/20 18:55 Blood Culture - Preliminary Blood No Growth after 24 hours 01/05/20 09:00 Urine Culture - Preliminary Urine,Clean Catch Assessment and Plan Assessment: Acute colitiscontinue broad-spectrum antibiotics Ulcerative colitisfollow-up with GI in 2-3 weeks for colonoscopy GERD Anxiety and depression History of ovarian cyst History of diverticulitis ADHD Smoker (1) Abdominal pain Current Visit: Yes Status: Resolved Code(s): R10.9 - UNSPECIFIED ABDOMINAL PAIN SNOMED Code(s): 50981468 (2) Acute colitis Current Visit: Yes Status: Acute Code(s): K52.9 - NONINFECTIVE GASTROE NTERITIS AND COLITIS, UNSPECIFIED SNOMED Code(s): 80570093 Plan: Acute colitis-continue IV antibiotics. Conversion to oral antibiotics for di scharge Ulcerative colitis-conditions from GI colonoscopy in 2-3 weeks Hypoglycemic-resolved with IV fluids D5.9 and increasing diet Hopeful discharge home today Time with Patient: Greater than 30
[2020-01-06] MEDS: CALCIUM PO SCH (08:09)
[2020-01-06] MEDS: IRON PO SCH (08:09)
[2020-01-06] MEDS: metroNIDAZOLE-NS PMX 500 MG in SALINE 1 100ML.BAG IVPB SCH ×2 (08:21→15:50)
[2020-01-06] MEDS: PARoxetine 10 MG TAB PO SCH (08:22)
[2020-01-06] MEDS: PANTOPRAZOLE 40 MG/10 ML VIAL IV SCH (08:22)
[2020-01-06] MEDS: POTASSIUM CHLORIDE ER 20 MEQ TAB.ER PO SCH ×2 (08:22→09:17)
[2020-01-06] MEDS: KETOTIFEN 0.025% OPHTH DROPS 5 ML BTL BOTH EYES SCH (08:32)
[2020-01-06] MEDS: DEXTROSE 5%-0.9% NACL 1,000 ML IV SCH (09:18)
[2020-01-06 10:29] LABS: Glucose,Whole Blood 84 mg/dL (75-99)
[2020-01-06] MEDS ORDERED: POTASSIUM CHLORIDE ER 20 MEQ TAB.ER PO STA (11:21)
[2020-01-06 16:01] VITALS: BP 92/53; PULSE 77; RESP 20; TEMP 97
[2020-01-06 16:04] LABS: Glucose,Whole Blood 103 mg/dL (75-99)
--- NOTE | 2020-01-06 17:01 | PN ---
PROGRESS NOTE DATE OF SERVICE: 01/06/2020 The patient is a 54-year-old pleasant white female admitted to hospital with acute onset of severe abdominal pain with diarrhea for the last 8 days duration. She was having bowel movements anywhere from 5 to 10 a day which were loose to watery in consistency. She was admitted to the hospital and was started on broad-spectrum antibiotics with Levaquin and Flagyl and she is doing much better. This morning she had one loose bowel movement. Diet was advanced to a regular diet this afternoon. She continues to do well. She reports no further episodes of abdominal pain. No nausea, vomiting. No fever, chills, night sweats. PHYSICAL EXAMINATION: She appears comfortable. No apparent distress. VITAL SIGNS: Stable. Blood pressure is 86/47, pulse rate 82 per minute and afebrile. HEENT examination unremarkable. Conjunctivae pink, sclerae anicteric. Oral cavity no lesions. NECK: No JVD or lymph node enlargement. CHEST was clear auscultation. HEART: Regular rate and rhythm. ABDOMEN: Soft. Bowel sounds are positive. No organomegaly. EXTREMITIES: No pedal edema. SKIN: No rashes. NEURO: She is alert and oriented x3. No focal deficits. LABS: From today WBC 7.6, hemoglobin 10.3, platelets normal. Basic metabolic panel is within normal limits. IMPRESSION: Acute onset of nausea, vomiting, abdominal pain and diarrhea for the last one week duration, most likely infectious etiology. Patient on broad-spectrum antibiotics with Levaquin and Flagyl and symptoms are gradually improving. She is feeling much better today. On a clear liquid diet, tolerating well. Dietary was advanced to regular diet. Diarrhea has resolved. RECOMMENDATIONS: 1. Continue empiric antibiotics. 2. Advance to regular diet. 3. She can be discharged home today or tomorrow with outpatient followup as needed. Thank you for this consultation. MMODL / IJN: [id number] /
--- NOTE | 2020-01-06 17:31 | P.DS ---
Providers Date of admission: 01/04/20 17:33 Expected date of discharge: 01/06/20 Attending physician: Anival Ponce Consults: 01/04/20 17:34 Consult Physician Routine Consulting Provider: Ssuan Lim Consult Reason/Comments: Acute colitis Do you want consulting provider notified?: Yes Primary care physician: Anival Ponce - Discharge Diagnosis(es) (1) Abdominal pain Diffuse abdominal pain resolved Current Visit: Yes Status: Resolved (2) Acute colitis Patient received broad-spectrum antibiotics Levaquin and Flagyl for acute colitis. No peritoneal signs upon discharge. Patient tolerated IV antibiotic therapy and advancement of diet. Patient to follow-up with gastroenterology for colonoscopy in 2-3 weeks Current Visit: Yes Status: Acute Hospital Course: 54-year-old female was sent to the emergency room-due to diagnostic CAT scan showing infectious versus inflammatory bowel dysfunction with associated symptoms of significant weight loss and unable to tolerate fluids or solids. Patient was admitted to the emergency department and placed on Levaquin and Flagyl for acute colitis. Patient improved with IV antibiotics and hydration. Gastroenterology was consulted regarding acute colitispatient to follow-up with gastroenterology in 2-3 weeks for outpatient colonoscopy. Assessment: Acute colitis Ulcerative colitis ADHD Depression Anxiety History of diverticulitis History ovarian cyst Health Concerns: None noted Pertinent Studies: KUB Procedures: None noted Patient Condition at Discharge: Fair Plan - Discharge Summary Discharge Rx Participant: Yes New Discharge Prescriptions: New Ciprofloxacin HCl [Cipro] 500 mg PO Q12HR 7 Days #14 tab metroNIDAZOLE [Flagyl] 500 mg PO Q8HR #21 tab No Action PARoxetine HCL [Paxil Cr] 12.5 mg PO DAILY Cetirizine HCl [Zyrtec] 10 mg PO AC-SUPPER Pantoprazole Sodium [Protonix] 40 mg PO AC-BID Olopatadine HCl [Pataday] 1 drop BOTH EYES DAILY Calcium/Iron(Unknown) 1 tab PO DAILY Discharge Medication List PARoxetine HCL [Paxil Cr] 12.5 mg PO DAILY 08/02/14 [History] Cetirizine HCl [Zyrtec] 10 mg PO AC-SUPPER 09/16/19 [History] Olopatadine HCl [Pataday] 1 drop BOTH EYES DAILY 09/16/19 [History] Pantoprazole Sodium [Protonix] 40 mg PO AC-BID 09/16/19 [History] Calcium/Iron(Unknown) 1 tab PO DAILY 01/04/20 [History] Ciprofloxacin HCl [Cipro] 500 mg PO Q12HR 7 Days #14 tab 01/06/20 [Rx] metroNIDAZOLE [Flagyl] 500 mg PO Q8HR #21 tab 01/06/20 [Rx] Follow up Appointment(s)/Referral(s): Anival Ponce MD [Primary Care Provider] - 1-2 days Patient Instructions/Handouts: Ulcerative Colitis (DC) Activity/Diet/Wound Care/Special Instructions: Take prescribed medication as ordered. F/U with Dr. Ponce, call Thursday for an appointment. Discharge Disposition: HOME SELF-CARE
--- NOTE | 2020-01-09 08:42 | CDI ---
Documentation Clarification Form Date: 01/09/20 From: Lacey De Paz CCS Phone: If you have a question about this query, please contact Bere Armstrong, Steward/Stewardess Room at [phone] between 8am and 5pm. Admit Date: 01/04/20 Discharge Date:01/06/20 Patient Name: Silvia Meyer Visit Number: [id number] ATTENTION: The Clinical Documentation Specialists (CDI) and [facility] Coding Staff appreciate your assistance in clarifying documentation. Please respond to the clarification below the line at the bottom and electronically sign. The CDI & [facility] Coding staff will review the response and follow-up if needed. Please note: Queries are made part of the Legal Health Record. If you have any questions, please contact the author of this message via ITS. Dear Dr. Ponce, Patient has been described as thin, significant weight loss, unable to keep fluids down, unable to tolerate fluids or solids. History/Risk Factors: Acute colitis, Ulcerative colitis, GERD, Tobacco, Hypoglycemia Clinical Indicators: Significant weight loss, thin, appetite loss, unable to tolerate PO Patients weight is: 53.97 kg Patients height is: 5 ft 6 in Calculated BMI is: 19.2 Labs: Albumin 3.1, 2.8- Total Protein 5.4, 5.1 Treatment: IV antibiotics for acute colitis In order to capture the severity of condition associated with patient BMI of 19.2, a clinical diagnosis needs to be documented by the physician. Please clarify: Cachexia Underweight Malnutrition Mild Moderate Severe Other Unable to determine underweight MTDD
== END 2020-01-06 17:25 | disposition home or self-care (01) | DRG 392 ==
LOC: EC 14:45 → 5NMEDONC 17:33 → 6PED 01-05 11:33
PROVIDERS: ADMIT Family Medicine; ATTEND Family Medicine
DX: A09 Infectious gastroenteritis and colitis, unspecified (principal); K51.90 Ulcerative colitis, unspecified, without complications; Z68.1 Body mass index [BMI] 19.9 or less, adult; K21.9 Gastro-esophageal reflux disease without esophagitis; F90.9 Attention-deficit hyperactivity disorder, unspecified type; F17.200 Nicotine dependence, unspecified, uncomplicated; F32.9 Major depressive disorder, single episode, unspecified; F41.9 Anxiety disorder, unspecified; E16.2 Hypoglycemia, unspecified; R63.6 Underweight; K57.90 Diverticulosis of intestine, part unspecified, without perforation or abscess without bleeding; Z79.899 Other long term (current) drug therapy; Z90.710 Acquired absence of both cervix and uterus; Z87.19 Personal history of other diseases of the digestive system; Z98.890 Other specified postprocedural states; Z88.8 Allergy status to other drugs, medicaments and biological substances; Z80.0 Family history of malignant neoplasm of digestive organs; Z80.3 Family history of malignant neoplasm of breast; Z80.41 Family history of malignant neoplasm of ovary; Z80.6 Family history of leukemia
CPT/HCPCS: 36415; 74018; 80053; 81001; 83605; 83690; 83735; 84132; 85025; 85652; 86140; 87040; 87086; 87324; 96360; 99285

== ENCOUNTER 2020-01-27 10:28 | Day surgery (SDC) | payer BC ==
[2020-01-25 09:56] VITALS: BMI 19.8
[~2020-01-27 10:28] MED LIST: LACTATED RINGERS 1,000 ML IV SCH; LIDOCAINE 1% (10MG/ML) FOR IV START INTRADERMA PRN
[2020-01-27 11:24] VITALS: RESP 16
[2020-01-27 11:28] VITALS: TEMP 97.9
[2020-01-27] MEDS ORDERED: PROPOFOL 10 MG/ML 20 ML VIAL IV ONE (12:12)
[2020-01-27] MEDS ORDERED: MIDAZOLAM 2 MG/2 ML VIAL ONE (12:12)
--- NOTE | 2020-01-27 12:33 | P.PCN ---
Date of Procedure: 01/27/20 Procedure(s) Performed: BRIEF HISTORY: Patient is a 54-year-old pleasant white female scheduled for an elective colonoscopy as a part of evaluation of recent episode of acute abdominal pain with rectal bleeding for which she was admitted to the hospital [address] of abdomen showed sigmoid colitis. She had a similar episode in 2017 and was diagnosed with ischemic colitis. PROCEDURE PERFORMED: Colonoscopy. PREOPERATIVE DIAGNOSIS: Recent episode of lower abdominal pain and rectal. IV sedation per Anesthesia. PROCEDURE: After informed consent was obtained, the patient, was brought into the endoscopy unit. IV sedation was administered by Anesthesia under continuous monitoring. Digital rectal examination was normal. Initially the Olympus CF-160 flexible video colonoscope was then inserted in the rectum, gradually advanced into the cecum without any difficulty. Careful examination was performed as the scope was gradually being withdrawn. Ileocecal valve and the appendiceal orifice were visualized and appeared normal. Prep was excellent. Mucosa of the cecum, ascending colon, transverse colon, descending colon, sigmoid colon, and rectum appeared normal. Retroflexion was performed in the rectum and no lesions were seen. The patient tolerated the procedure well. IMPRESSION: Normal-appearing colon from rectum to cecum with no evidence of colitis or colorectal neoplasia . Scattered sigmoid diverticulosis. RECOMMENDATIONS: Findings of this examination were discussed with the patient as well as a family. She was advised to be a high-fiber diet, take fiber supplements a regular basis and have a repeat screening colonoscopy in 10 years.
[2020-01-27 13:56] VITALS: BP 100/67; PULSE 80
== END 2020-01-27 13:07 | disposition home or self-care (01) ==
LOC: ORWHC2ENDO 10:28
PROVIDERS: ATTEND Internal Medicine Gastroenterology
DX: K57.31 Diverticulosis of large intestine without perforation or abscess with bleeding (principal); K21.9 Gastro-esophageal reflux disease without esophagitis; Z87.19 Personal history of other diseases of the digestive system; Z88.1 Allergy status to other antibiotic agents; Z79.899 Other long term (current) drug therapy; Z87.891 Personal history of nicotine dependence
CPT/HCPCS: 45378; J2250; J2704

== ENCOUNTER → 2021-02-07 | Outpatient (CLI) | payer BC | END | disposition home or self-care (01) | LOC: LABWHC1 11:39 | PROVIDERS: ATTEND Family Medicine | DX: J06.9 Acute upper respiratory infection, unspecified (principal); Z20.822 Contact with and (suspected) exposure to COVID-19 | CPT/HCPCS: 87502; U0003; C9803 ==

== ENCOUNTER → 2021-02-13 | Outpatient (CLI) | payer BC | END | disposition home or self-care (01) | LOC: LABWHC1 11:29 | PROVIDERS: ATTEND Family Medicine | DX: J06.9 Acute upper respiratory infection, unspecified (principal) | CPT/HCPCS: U0003; C9803 ==

== ENCOUNTER → 2021-02-15 | Outpatient (CLI) | payer BC ==
--- NOTE | 2021-02-15 11:54 | XR ---
EXAMINATION TYPE: XR chest 2V DATE OF EXAM: 02/15/2021 COMPARISON: Chest x-ray dated 02/19/2016, CT 06/07/2018 HISTORY: J06.9 TECHNIQUE: Frontal and lateral views of the chest are obtained. FINDINGS: There is no focal air space opacity, pleural effusion, or pneumothorax seen. Prominent mingo g volumes are present suggestive of underlying COPD, there is underlying emphysema, bilateral apical pleural thickening and flattening the hemidiaphragms, increased retrosternal airspace is noted. The cardiac silhouette size is within normal limits. There is bronchial wall thickening. The osseous str uctures are intact. IMPRESSION: Correlate for bronchitis
== END | disposition home or self-care (01) ==
LOC: RADXRMAIN 10:02
PROVIDERS: ATTEND Nurse Practitioner Family
DX: J06.9 Acute upper respiratory infection, unspecified (principal)
CPT/HCPCS: 71046

== ENCOUNTER → 2021-07-25 | Outpatient (CLI) | payer BC ==
--- NOTE | 2021-07-26 15:55 | MM ---
Reason for Exam: Screening (asymptomatic). Last mammogram was performed 1 year(s) and 8 month(s) ago. Patient History: Menarche at age 18. First Full-Term at age 23. Left ovary removed at age 49. Right ovary removed at age 49. Hysterectomy at age 27. Postmenopausal. Patient used Hormonal Contraceptives for 5 years. Maternal cousin had breast cancer, age 30. Maternal aunt had breast cancer, age 40. Risk Values: [place] 5 year model risk: 1.0%. NCI Lifetime model risk: 6.6%. Prior Study Comparison: 08/16/2013 Screening Mammogram, [facility]. 03/05/2016 Bilateral Screening Mammogram, [facility]. 12/13/2019 Bilateral Screening Mammogram, [facility]. Tissue Density: The breast tissue is heterogeneously dense. This may lower the sensitivity of mammography. Findings: Analyzed By CAD. And appears symmetrical and stable. Benign calcifications within the left breast. No significant interval change is evident. Overall Assessment: Benign, BI-RAD 2 Management: Screening Mammogram of both breasts in 1 year. A clinical breast exam by your physician is recommended on an annual basis and results should be correlated with mammographic findings. Electronically signed and approved by: Romie Colindres D.O. Radiologis
== END | disposition home or self-care (01) ==
LOC: RADMAMWWP 16:17
PROVIDERS: ATTEND Family Medicine
DX: Z12.39 Encounter for other screening for malignant neoplasm of breast (principal)
CPT/HCPCS: 77063; 77067

== ENCOUNTER 2022-03-09 17:19 | Emergency (ER) | payer BC ==
[2022-03-09 17:35] VITALS: TEMP 98
--- NOTE | 2022-03-09 18:49 | ED ---
Head Injury HPI - General Chief complaint: Head Injury Stated complaint: head injury Time Seen by Provider: 03/09/22 17:46 Source: patient Mode of arrival: ambulatory Limitations: no limitations - History of Present Illness Initial comments: This patient is a 56-year-old woman who presents to have evaluation of head injury. The patient states that 1 days ago she stood up a covered and struck her head against the wooden undersurface. She struck on the left parietal area. The patient did not have loss of consciousness. She states that there is some mild to moderate headache associated. No neurologic symptoms. No neck pain. No other injury. MD Complaint: head injury, head pain -: days(s) Mechanism of Injury: other Location: parietal (Left) Loss of Consciousness: no Previous Trauma to this Area: No Radiation: none Severity: moderate Quality: aching Consistency: constant Provoking factors: none known Other Injuries: none Associated Symptoms: denies other symptoms - Related Data Home Medications Medication Instructions Recorded Confirmed PARoxetine HCL [Paxil Cr] 12.5 mg PO DAILY 08/02/14 03/09/22 Olopatadine HCl [Pataday] 1 drop BOTH EYES DAILY 09/16/19 03/09/22 Pantoprazole Sodium [Protonix] 40 mg PO AC-BID 09/16/19 03/09/22 Cetirizine HCl 10 mg PO DAILY 03/09/22 03/09/22 Allergies/Adverse reactions: Allergies Allergy/AdvReac Type Severity Reaction Status Date / Time Tetracyclines AdvReac Severe Dizzy Verified 03/09/22 19:18 Review of Systems ROS Statement: Those systems with pertinent positive or pertinent negative responses have been documented in the HPI. ROS Other: All systems not noted in ROS Statement are negative. Constitutional: Denies: fever, chills Eyes: Denies: eye pain, vision change ENT: Denies: epistaxis Respiratory: Denies: dyspnea Cardiovascular: Denies: chest pain, syncope Gastrointestinal: Denies: abdominal pain, vomiting, diarrhea Musculoskeletal: Denies: back pain Neurological: Reports: headache. Denies: weakness, numbness, confusion Hematological/Lymphatic: Denies: easy bleeding Past Medical History Past Medical History: GERD/Reflux Additional Past Medical History / Comment(s): COLITIS. Hx left ovarian cyst, diverticula History of Any Multi-Drug Resistant Organisms: None Reported Past Surgical History: Hysterectomy Additional Past Surgical History / Comment(s): hemrrhoidectomy, bunion surgery, Past Anesthesia/Blood Transfusion Reactions: Motion Sickness Additional Past Anesthesia/Blood Transfusion Reaction / Comment(s): mild Past Psychological History: ADD/ADHD Smoking Status: Current every day smoker Past Alcohol Use History: None Reported Past Drug Use History: None Reported - Past Family History Mother Family Medical History: Cancer Additional Family Medical History / Comment(s): colon cancer ovarian and breast Father Family Medical History: Cancer Additional Family Medical History / Comment(s): lukemia General Exam Limitations: no limitations General appearance: alert, in no apparent distress Head exam: Present: other (Some mild tenderness over the left parietal area. Small amount of swelling. No palpable bony deformity.) Eye exam: Present: normal appearance, PERRL, EOMI. Absent: scleral icterus, conjunctival injection, nystagmus Neck exam: Present: normal inspection, full ROM. Absent: tenderness, m eningismus Respiratory exam: Present: normal lung sounds bilaterally. Absent: respiratory distress, wheezes, rales, rhonchi, stridor Cardiovascular Exam: Present: regular rate, normal rhythm, normal heart sounds. Absent: systolic murmur, diastolic murmur, rubs, gallop Back exam: Present: normal inspection. Absent: vertebral tenderness Neurological exam: Present: alert, oriented X3, CN II-XII intact. Absent: motor sensory deficit Skin exam: Present: warm, dry, intact, normal color. Absent: rash Course Vital Signs 03/09/22 03/09/22 17:32 19:46 Temperature 98 F Pulse Rate 88 80 Respiratory 20 16 Rate Blood Pressure 111/74 110/74 O2 Sat by Pulse 99 97 Oximetry Medical Decision Making - Medical Decision Making Patient is a 56-year-old woman presenting with continued headache the day following head injury. She does have moderate tenderness there and therefore there is concern for possible skull fracture. Computed tomography scan of the head was ordered which I have interpreted as showing no cranial fracture, no intracranial hemorrhage. Discussed results with the patient. Discussed appropriate further care and follow-up including return parameters. Was pt. sent in by a medical professional or institution? @ -[No Did you speak to anyone other than the patient for history? @ -[No Did you review nursing and triage notes? @ -[agree Were old charts reviewed? @ -[No Differential Diagnosis? @ -[Differential diagnosis for head injury includes but not limited to cranial fracture, intracranial hemorrhage, neck injury EKG interpreted by me (3pts min.)? @ -[none] X-rays interpreted by me (1pt min.)? @ -[none] CT interpreted by me (1pt min.)? @ -[As above U/S interpreted by me (1pt. min.)? @ -[none] What testing was considered but not performed? (CT, X-rays, U/S, labs)? Why? @ [No What meds were considered but not given? Why? @ -[none] Did you discuss the management of the patient with other professionals? @ -[No Did you reconcile home meds? @ -[none] Was smoking cessation discussed for >3mins.? @ -[none] Was critical care preformed (if so, how long)? @ -[none] Were there social determinants of health that impacted care today? How? (Homelessness, low income, unemployed, alcoholism, drug addiction, transportation, low edu. Level, literacy, decrease access to med. care, retirement, rehab)? @ -[No Was there de-escalation of care discussed even if they declined? (Discuss DNR or withdrawal of care, Hospice)? @ -[No What co-morbidities impacted this encounter? (DM, HTN, Smoking, COPD, CAD, Cancer, CVA, Hep., AIDS, mental health diagnosis, sleep apnea, morbid obesity)? @ -[No Was patient admitted / discharged? @ -[Discharged Undiagnosed new problem with uncertain prognosis? @ -[none] Drug Therapy requiring intensive monitoring for toxicity (Heparin, Nitro, Insulin, Cardizem)? @ -[none] Were any procedures done? @ -[none] Diagnosis/symptom? @ -[Acute head injury, uncomplicated Contusion, acute, uncomplicated Acute, or Chronic, or Acute on Chronic? @ -[default] Uncomplicated (without systemic symptoms) or Complicated (systemic symptoms)? @ -[default] Side effects of treatment? @ -[none] Exacerbation, Progression, or Severe Exacerbation] @ -[no] Poses a threat to life or bodily function? @ -[no] Disposition Clinical Impression: Head injury, Contusion of scalp Disposition: HOME SELF-CARE Condition: Good Instructions (If sedation given, give patient instructions): Head Injury (ED) Is patient prescribed a controlled substance at d/c from ED?: No Referrals: Anival Ponce MD [Primary Care Provider] - 1-2 days
--- NOTE | 2022-03-09 19:09 | CT ---
EXAMINATION TYPE: CT brain wo con DATE OF EXAM: 03/09/2022 COMPARISON: 06/07/2018 HISTORY: Hit head yesterday. C/o dizziness CT DLP: 1129.4 mGycm Automated exposure control for dose reduction was used. Images obtained of the brain with no contrast. Ventricles have normal size. There is no mass effect nor midline shift. No sign of intracranial hemor rhage. Calvarium is intact. No evidence of cerebral edema. IMPRESSION: Negative unenhanced head CT scan. No change.
[2022-03-09 19:47] VITALS: BP 110/74; PULSE 80; RESP 16
== END 2022-03-09 19:49 | disposition home or self-care (01) ==
LOC: EC 17:19
DX: S00.03XA Contusion of scalp, initial encounter (principal); S09.90XA Unspecified injury of head, initial encounter; K21.9 Gastro-esophageal reflux disease without esophagitis; F17.200 Nicotine dependence, unspecified, uncomplicated; F90.9 Attention-deficit hyperactivity disorder, unspecified type; Z79.899 Other long term (current) drug therapy; Z88.8 Allergy status to other drugs, medicaments and biological substances; W22.8XXA Striking against or struck by other objects, initial encounter
CPT/HCPCS: 70450; 99283

== ENCOUNTER → 2023-03-06 | Outpatient (CLI) | payer BC ==
--- NOTE | 2023-03-07 14:48 | BD ---
EXAMINATION TYPE: Axial Bone Density DATE OF EXAM: 03/06/2023 CLINICAL HISTORY: 57 years old Female. ICD-10 CODE: M85.88 Osteopenia Height: 65" Weight: 121.7lbs FRAX RISK QUESTIONS: Alcohol (3 or more units per day): No Family History (Parent hip fracture): No Glucocorticoids (More than 3mos): No (Ex: prednisone, prednisolone, methylprednisolone, dexamethasone, and hydrocortisone). History of Fracture in Adulthood: Yes Secondary Osteoporosis: 1. Type 1 Diabetes: No 2. Hyperthyroidism: No 3. Menopause before 45: Yes 4. Malnutrition: No 5. Chronic liver disease: No Rheumatoid Arthritis: No Current Tobacco Use: Yes RISK FACTORS HISTORY OF: Hip Fracture (Right/Left): No Spine Fracture: No History of Wrist Fracture: No Surgery to Spine/Hip(right/left)/Wrist (right/left): No Family History of Osteoporosis: Yes Active: Yes Diet low in dairy products/other sources of calcium: No Postmenopausal woman: Yes Lost more than 2 inches in height since high school: No Frequent falls: No Poor Health: No Hyperparathyroidism: No Adrenal Insufficiency: No MEDICATIONS: Prednisone or other steroids: No Thyroid Medications: No Osteoporosis Medications: No Additional Medications: Vitamin D, Calcium Additional History: N/A EXAM MEASUREMENTS: Bone mineral densitometry was performed using the [employer] System. Bone mineral density as measured about the Lumbar spine is: ----- L1-L4(G/cm2): 0.901 T Score Values are as follows: ----- L1: -1.8 ----- L2: -3.1 ----- L3: -1.9 ----- L4: -2.6 ----- L1-L4: -2.3 Z Score Values are as follows: ----- L1: -0.4 ----- L2: -1.7 ----- L3: -0.6 ----- L4: -1.3 ----- L1-L4: -1.0 Bone mineral density has: decreased -11.8% since study of: 03/05/2016 Bone mineral density about the R hip (g/cm2): 0.741 Bone mineral density about the L hip (g/cm2): 0.766 T Score values are as follows: -----R Neck: -2.4 -----L Neck: -2.2 -----R Total: -2.1 -----L Total: -1.9 Z Score values are as follows: -----R Neck: -1.1 -----L Neck: -0.9 -----R Total: -1.1 -----L Total: -0.9 Bone mineral density has: decreased -13.5% since study of: 03/05/2016 FRAX%s: The graph provided illustrates a 17.2% chance for a major osteoporotic fx and a 5.5% chance f or the hips probability for fx in 10 years time. IMPRESSION: Osteopenia (T Score between -2.5 and -1). There is slightly increased risk of fracture and the patient may be considered for treatment. Re-Screen 2-5 years. NOTE: T-SCORE=SD OF THE YOUNG ADULT MEAN.
--- NOTE | 2023-03-08 17:28 | MM ---
Reason for Exam: Screening (asymptomatic). Last mammogram was performed 1 year(s) and 7 month(s) ago. Patient History: Menarche at age 18. First Full-Term at age 23. Left ovary removed at age 49. Right ovary removed at age 49. Hysterectomy at age 27. Postmenopausal. Patient used Hormonal Contraceptives for 5 years. Maternal cousin had breast cancer, age 30. Maternal aunt had breast cancer, age 40. Risk Values: Bushra 5 year model risk: 1.0%. NCI Lifetime model risk: 6.5%. Prior Study Comparison: 03/05/2016 Bilateral Screening Mammogram, [facility]. 12/13/2019 Bilateral Screening Mammogram, [facility]. 07/25/2021 Bilateral MG 3D screening mammo w/cad, [facility]. Tissue Density: The breast tissue is extremely dense which could obscure a lesion on mammography. Findings: Analyzed By CAD. The pattern is symmetrical. Pattern appears stable. Benign calcifications left breast. No suspicious groups of microcalcifications, spiculated or lobular masses, architectural distortion or other secondary signs of malignancy are mammographically apparent. Overall Assessment: Benign, BI-RAD 2 Management: Screening Mammogram of both breasts in 1 year. A negative mammogram report should not preclude additional follow up of suspicious palpable abnormalities. Patient should continue monthly self breast exam. A clinical breast exam by your physician is recommended on an annual basis and results should be correlated with mammographic findings. Electronically signed and approved by: Romie Colindres D.O. Radiologis
== END | disposition home or self-care (01) ==
LOC: RADMAMWWP 07:13
PROVIDERS: ATTEND Obstetrics & Gynecology
DX: Z12.31 Encounter for screening mammogram for malignant neoplasm of breast (principal); M85.89 Other specified disorders of bone density and structure, multiple sites; Z78.0 Asymptomatic menopausal state; Z80.3 Family history of malignant neoplasm of breast
CPT/HCPCS: 77063; 77067; 77080

== ENCOUNTER → 2023-10-14 | Outpatient (CLI) | payer BC ==
--- NOTE | 2023-11-11 11:46 | US ---
Patient: Silvia Meyer Ordering Physician: Unknown, Unknown ID: [id number] Phone, Pager: Phone : N/A Pager: N/A : N/A Age/Gender: N/A, N/A Primary Location: N/A Procedure: US abdomen complete S emi Date: 10/14/2023 7:10:00 AM EXAMINATION TYPE: US abdomen complete DATE OF EXAM: 10/14/2023 COMPARISON: NONE CLINICAL INDICATION: Unknown, old with history of ; TECHNIQUE: Multiple sonographic images of the abdomen are obtained. FINDINGS: Pancreas: limited visualization Aorta: appears wnl IVC: appears wnl Liver: Slight increase in echogenicity Gallbladder: Appears wnl GB Wall: 0.11cm CBD: 0.18cm Right Kidney: 8.9 x 4.0 x 3.7cm Left Kidney: 9.6 x 5.4 x 4.1cm Spleen: 7.7 x 6.6 x 2.9cm The liver is heterogenous. The intrahepatic portion of the IVC and proximal abdominal aorta are withi n normal limits. There is no evidence of cholelithiasis. Common bile duct is unremarkable. The vis ualized portions of the pancreas are homogenous. The spleen is unremarkable. Kidneys are symmetric and free of hydronephrosis. No renal lesions are seen. IMPRESSION: Hepatic Steatosis.
== END | disposition home or self-care (01) ==
LOC: RADUSWWP 18:26
PROVIDERS: ATTEND Family Medicine
DX: K76.0 Fatty (change of) liver, not elsewhere classified (principal); R19.7 Diarrhea, unspecified
CPT/HCPCS: 76700

== ENCOUNTER → 2023-10-15 | Outpatient (CLI) | payer BC ==
[2023-11-18 12:45] LABS: Cryptosporidium Antigen Negative (Negative)
== END | disposition home or self-care (01) ==
LOC: LABPRL 12:00
PROVIDERS: ATTEND Nurse Practitioner Family
DX: K52.9 Noninfective gastroenteritis and colitis, unspecified (principal)
CPT/HCPCS: 83630; 87045; 87046; 87077; 87186; 87328; 87329

== ENCOUNTER 2023-10-16 17:10 | Emergency (ER) | payer BC ==
[~2023-10-16 17:10] MED LIST changes: -LACTATED RINGERS 1,000 ML IV SCH; -LIDOCAINE 1% (10MG/ML) FOR IV START INTRADERMA PRN; +SODIUM CHLORIDE 0.9% 1,000 ML BAG ONE
[2023-10-16] MEDS ORDERED: ONDANSETRON 4 MG/2 ML VIAL ONE (18:06)
[2023-10-16] MEDS ORDERED: predniSONE 20 MG TAB ONE (20:17)
[2023-10-16] MEDS ORDERED: AMOXIC-POT CLAV 875-125MG 1 EACH TAB ONE (20:18)
--- NOTE | 2023-11-09 08:05 | CT ---
Report Patient: Silvia Meyer Ordering Physician: Unknown, Unknown ID: [id number] Phone, Pager: Phone: N/A Pager: N/A : 1965 Age/Gender: 58Y, F Primary Location: N/A Procedure: CT abdomen pelvis w con Study Date: 10/16/2023 6:11:00 PM EXAMINATION TYPE: CT abdomen pelvis w con DATE OF EXAM: 10/16/2023 COMPARISON: 01/03/2020 HISTORY: 58-year-old female abdominal pain and diarrhea, history of colitis TECHNIQUE: Contiguous axial scanning of the abdomen and pelvis following administration of 100 ml Iso linn 300 IV contrast. Delayed images through the kidneys and coronal/sagittal reconstructions perform ed. CT DLP: 474.3 mGycm Automated exposure control for dose reduction was used. FINDINGS: The heart is normal size without pericardial effusion. Lung bases clear without pleural effusion. Some focal fat along the anterior falciform ligament. No biliary ductal dilatation. Portal venous sys tem is patent. Gallbladder, adrenal glands, kidneys, spleen, and pancreas within normal limits. Mild to moderate atherosclerotic calcifications infrarenal abdominal aorta without aneurysm. No dilated small bowel, free fluid, or free air. No mesenteric or retroperitoneal lymphadenopathy. There is mild to moderate circumferential wall thickening throughout the right hemicolon and also inv olving the redundant sigmoid colon. No pericolonic inflammatory changes seen. Normal appendix. Mild to moderate circumferential bladder wall thickening. Uterus surgically absent. Neither ovary nasra krystle identified. Tiny pelvic phleboliths. No abnormal fluid collection in the pelvis or pelvic lympha denopathy. Bones: No osseous destructive process. IMPRESSION: 1. RECURRENT NONSPECIFIC SEGMENTAL COLITIS WITH [id number] INFLAMMATORY WALL THICKENING. NO ABS CESS OR FREE AIR. 2. ADDITIONAL CIRCUMFERENTIAL WALL THICKENING OF THE BLADDER WHICH MAY BE CHRONIC FOR THE PATIENT. CO RRELATE TO EXCLUDE CYSTITIS.
== END 2023-10-16 20:15 | disposition home or self-care (01) ==
LOC: EC 17:10
DX: K52.9 Noninfective gastroenteritis and colitis, unspecified (principal)
CPT/HCPCS: 74177; 99284

== ENCOUNTER → 2024-01-09 | Outpatient (CLI) | payer BC ==
--- NOTE | 2024-01-09 13:54 | MR ---
EXAMINATION TYPE: MR brain wo/w con DATE OF EXAM: 01/09/2024 1:25 PM COMPARISON: None. CLINICAL INDICATION: Female, 58 years old with history of H53.2 Diplopia, Vertical double vision TECHNIQUE: Multiplanar, multiecho imaging on a 3.0 Jodi magnet is performed through the brain. Stud y is performed within 24 hours of arrival to the hospital.Multiplanar, multiecho imaging on a 3.0 Effie la magnet is performed through the knee. IV Contrast: 5 mL Gadavist (None, if empty) FINDINGS: The craniovertebral junction is normal. The pituitary is unremarkable. Diffusion-weighted imaging is performed. No abnormal hyperintensity is present to suggest an acute i ntracranial infarct or acute ischemic change. There are couple of small subcortical white matter changes, example series 601 image 23 which are non specific but can be related to microvascular ischemic change. Ventricles and sulci are appropriate for the patient age. IMPRESSION: 1. Mild subcortical punctate white matter changes are nonspecific but can be related to microvascular ischemic change. [facility], , 01/09/2024 1:52 PM
== END | disposition home or self-care (01) ==
LOC: RADMRIMAIN 12:13
PROVIDERS: ATTEND Family Medicine
DX: H53.2 Diplopia (principal); R90.82 White matter disease, unspecified
CPT/HCPCS: 70553; A9585

== ENCOUNTER → 2024-01-28 | Outpatient (CLI) | payer BC ==
--- NOTE | 2024-01-28 16:50 | US ---
EXAMINATION TYPE: US carotid duplex BILAT DATE OF EXAM: 01/28/2024 COMPARISON: NONE CLINICAL INDICATION: Female, 58 years old with history of Z86.73 PERSONAL HX OF TIA; Additional History: .... TECHNIQUE: Grayscale, color Doppler and spectral Doppler evaluation of the bilateral carotid systems and vertebral arteries. Indirect Doppler criteria was utilized. FINDINGS: EXAM MEASUREMENTS: RIGHT: Peak Systolic Velocity (PSV) cm/sec ----- Right CCA: 103 ----- Right ICA: 138 ----- Right ECA: 118 ICA/CCA ratio: 1.3 RIGHT: End Diastole cm/sec ----- Right CCA: 37.9 ----- Right ICA: 57.7 ----- Right ECA: 43.5 LEFT: Peak Systolic Velocity (PSV) cm/sec ----- Left CCA: 128 ----- Left ICA: 139 ----- Left ECA: 98 ICA/CCA ratio: 1.1 LEFT: End Diastole cm/sec ----- Left CCA: 36.6 ----- Left ICA: 61.3 ----- Left ECA: 18.7 VERTEBRALS (direction of flow): Right Vertebral: Antegrade Left Vertebral: Antegrade Rhythm: Normal FRONT COUNTER CLERK NOTES: Elevated Velocity Distal Rt ICA, Elevated Velocity Distal Lt ICA Bilateral plaque seen in Bulb Color Doppler imaging shows patency with blood flow throughout the carotid artery. Spectral waveforms are within normal limits. IMPRESSION: Right: Approximately 50-69% stenosis involving the internal carotid artery based on peak systolic carri ocity. Left: Approximately 50-69% stenosis involving the internal carotid artery based on peak systolic [place]. Criteria for Assigning % of Stenosis / Diameter reduction (Estimation based on the indirect measurements of the internal carotid artery velocities (ICA PSV). 1. Normal (no stenosis)=ICA PSV < 125 cm/s: ratio < 2.0: ICA EDV<40 cm/s. 2. Less than 50% stenosis=ICA PSV < 125 cm/s: ratio < 2.0: ICA EDV<40 cm/s. 3. 50 to 69% stenosis=ICA PSV of 125 to 230 cm/s: ration 2.0 ? 4.0: ICA EDV 40-100 cm/s. 4. Greater than 70% stenosis to near occlusion= ICA PSV > 230 cm/s: ratio > 4.0: ICA EDV > 100 cm/s. 5. Near occlusion= ICA PSV velocities may be low or undetectable: variable ratio and ICA EDV. 6. Total occlusion=unable to detect flow. [facility], , 01/28/2024 4:48 PM
== END | disposition home or self-care (01) ==
LOC: RADUSWWP 15:19
PROVIDERS: ATTEND Family Medicine
DX: I65.23 Occlusion and stenosis of bilateral carotid arteries (principal); Z86.73 Personal history of transient ischemic attack (TIA), and cerebral infarction without residual deficits
CPT/HCPCS: 93880